=== PATIENT | female | born 1960 | race Caucasian/White ===

== ENCOUNTER 2017-06-11 11:52 | Emergency (ER) | payer OTHER ==
[2017-06-11 12:20] VITALS: BP 120/76
--- NOTE | 2017-06-11 13:24 | UC ---
Complaint Female HPI - HPI Summary HPI Summary: MILD BILATERAL LOW BACK AND FLANK PAIN, FREQUENCY URGENCY AND MALODOROUS URINE SINCE LAST NIGHT. NO FEVER. NO ABDOMINAL PAIN. NO BLOODIN INURINE. - History Of Current Complaint Chief Complaint: UCGU Stated Complaint: UTI Time Seen by Provider: 06/11/17 12:17 Hx Obtained From: Patient Onset/Duration: Gradual Onset, Lasting Hours Timing: Intermittent Severity Initially: Mild Severity Currently: Mild Pain Intensity: 0 Pain Scale Used: 0-10 Numeric Character: Dull Aggravating Factor(s): Urination Associated Signs And Symptoms: Positive: Back Pain. Negative: Fever, Vaginal Bleeding/Discharge, Nausea, Vomiting(# Of Episodes =), Genital Swelling, Genital Blisters - Risk Factors Ectopic Risk Factor: Negative Ovarian Torsion Risk Factor: Negative - Allergies/Home Medications Allergies/Adverse Reactions: Allergies Allergy/AdvReac Type Severity Reaction Status Date / Time Meperidine [From Demerol HCl] Allergy Unknown Unknown Verified 08/22/13 17:41 Reaction Details Codeine Allergy Unknown Verified 08/22/13 17:40 Reaction Details Sulfa Drugs Allergy Shortness Verified 08/22/13 17:40 of Breath Home Medications: Home Medications Albuterol inh POWDER (NF) [Proair Respiclick] 06/11/17 [History] Amlodipine Besylate [Norvasc 5 mg tab] 5 mg PO DAILY 06/11/17 [History Confirmed 06/11/17] Fluoxetine HCl [Prozac] 60 mg PO 06/11/17 [History] Fluticasone HFA 110 mcg(NF) [Flovent HFA 110 mcg(NF)] 1 puff INH BID 06/11/17 [ History Confirmed 06/11/17] Montelukast Sodium TAB* [Singulair TAB*] 10 mg PO DAILY 06/11/17 [History Confirmed 06/11/17] PMH/Surg Hx/FS Hx/Imm Hx Previously Healthy: Yes - Surgical History Surgical History: Yes Surgery Procedure, Year, and Place: stent placement, kidney stone removal, c- section x2 - Family History Known Family History: Positive: Renal Disease - KIDNEY STONES - Social History Occupation: Employed Full-time Lives: With Family Alcohol Use: Rare Substance Use Type: Prescribed Smoking Status (MU): Never Smoked Tobacco Review of Systems Constitutional: Negative Skin: Negative Eyes: Negative ENT: Negative Respiratory: Negative Cardiovascular: Negative Gastrointestinal: Negative Genitourinary: Dysuria, Frequency, Urgency Motor: Negative Neurovascular: Negative Musculoskeletal: Negative Neurological: Negative Psychological: Negative Is Patient Immunocompromised?: No All Other Systems Reviewed And Are Negative: Yes Physical Exam Triage Information Reviewed: Yes Appearance: Well-Appearing, No Pain Distress, Well-Nourished Vital Signs: Initial Vital Signs Temp 97.1 F 06/11/17 12:17 Pulse 85 06/11/17 12:17 Resp 18 06/11/17 12:17 BP 120/76 06/11/17 12:17 Pulse Ox 100 06/11/17 12:17 Vital Signs Reviewed: Yes Eye Exam: Normal ENT Exam: Normal ENT: Positive: Normal ENT inspection Dental Exam: Normal Neck exam: Normal Respiratory Exam: Normal Respiratory: Positive: Chest non-tender, Lungs clear, Normal breath sounds, No respiratory distress Cardiovascular Exam: Normal Cardiovascular: Positive: RRR, No Murmur, Pulses Normal Abdomen Description: Positive: Nontender, No Organomegaly, Soft, CVA Tenderness (L). Negative: CVA Tenderness (R), McBurney's Point Tenderness Musculoskeletal Exam: Normal Neurological Exam: Normal Psychological Exam: Normal Skin Exam: Normal Complaint Female Dx - Differential Dx/Diagnosis Differential Diagnosis/HQI/PQRI: Urinary Tract Infection Provider Diagnoses: URINARY TRACT INFECTION Discharge - Discharge Plan Condition: Stable Disposition: HOME Prescriptions: Ciprofloxacin TAB* [Cipro 500 MG TAB*] 500 mg PO BID #10 tab Phenazopyridine TAB* [Pyridium 100 mg TAB*] 100 mg PO TID PRN #15 tab PRN Reason: Pain Patient Education Materials: Urinary Tract Infection in Women (ED) Referrals: Juan Luis Jamison MD [Primary Care Provider] -
== END 2017-06-11 12:49 | disposition home or self-care (01) ==
LOC: UCEAST 11:52
DX: N39.0 Urinary tract infection, site not specified (principal); Z88.6 Allergy status to analgesic agent; Z88.2 Allergy status to sulfonamides
CPT/HCPCS: 81003; 87077; 87086; 87186; 99202; G0463

== ENCOUNTER 2017-10-26 20:40 | Inpatient (IN) | payer OTHER ==
[2017-10-26 22:03] LABS: ABS Basophils 0 10^3/ul (0-0.2); ABS Eosinophils 0 10^3/ul (0-0.6); ABS Lymphocytes 0.8 10^3/ul (1.0-4.8); ABS Monocytes 0.7 10^3/ul (0-0.8); ABS Neutrophils 10.7 10^3/ul (1.5-7.7); ABS Nucleated RBC 0 10^3/ul; Eosinophil % 0 % (0-6); Hematocrit 35 % (35-47); Hemoglobin 11.6 g/dl (12.0-16.0); Lymphocyte % 6.3 % (25-47); Mean Corpuscular HGB Conc 33 g/dl (31-36); Mean Corpuscular Hemoglobin 28 pg (27-31); Mean Corpuscular Volume 85 fL (80-97); Mean Platelet Volume 10 um3 (7.4-10.4); Nucleated Red Blood Cells % 0; Platelet Count 136 10^3/ul (150-450); Red Cell Distribution Width 14 % (10.5-15); White Blood Count 12.2 10^3/ul (3.5-10.8)
[2017-10-26 22:16] LABS: EGFR Non-African American 61.1 (>60)
[2017-10-26 22:17] LABS: Urine Appearance Clear; Urine Blood 1+ (Negative); Urine Color Amber; Urine Ketones Negative (Negative); Urine Protein Negative (Negative); Urine Specific Gravity 1.005 (1.010-1.030); Urine Urobilinogen Negative (Negative)
[2017-10-26] MEDS ORDERED: NS 0.9% 1000 ML* 2,000 ML IV ONE (22:25)
[2017-10-26] MEDS ORDERED: Piperacillin/Tazobac ADVAN(*) 3.375 GM in NS 0.9% 100 ML* 100 ML IVPB ONE (22:26)
[2017-10-26] MEDS ORDERED: Vancomycin(*) 1,000 MG in NS 0.9% 250 ML* 250 ML IVPB ONE (22:26)
[2017-10-26] MEDS ORDERED: Acetaminophen TAB* 325 MG PO ONE (22:26)
[2017-10-26] MEDS ORDERED: Ketorolac INJ* 30 MG/ML 1 ML VIAL IV PUSH ONE (22:27)
[2017-10-26] MEDS ORDERED: Piperacillin/Tazobac (*) 3.375 GM BAG ONE (22:31)
[2017-10-26] MEDS ORDERED: Ondansetron INJ* 2 MG/ML VIAL IV ONE (22:57)
--- NOTE | 2017-10-27 00:15 | ED ---
Slade Boykin Stephanie, scribed for Brook Herr MD on 10/26/17 at 2228 . HPI Febrile Illness - HPI Summary HPI Summary: The pt is a 57 y/o F presenting to the ED with c/o fever that began earlier today. Symptoms include [place] and feeling lethargic and weird. The pt states she went to [facility] at 10:30 today and was dx with UTI. The pt received ne dose of Cipro after her appointment at [facility]. She reports taking Vicodin at 21:30 today. - History of Current Complaint Chief Complaint: EDNauseaVomitDiarrh Time Seen by Provider: 10/26/17 22:10 Hx Obtained From: Patient Onset/Duration: Started Hours Ago - 9, Still Present Timing: Intermittent Current Severity: Moderate Pain Intensity: 6 Pain Scale Used: 0-10 Numeric Aggravating Factors: Nothing Alleviating Factors: Nothing Associated Signs and Symptoms: Headache, Other: - feeling lethargic and weird - Allergy/Home Medications Allergies/Adverse Reactions: Allergies Allergy/AdvReac Type Severity Reaction Status Date / Time codeine Allergy Unknown Verified 10/26/17 21:13 Reaction Details meperidine [From Demerol] Allergy Unknown Verified 10/26/17 21:13 Reaction Details Sulfa (Sulfonamide Allergy Shortness Verified 10/26/17 21:13 Antibiotics) of Breath PMH/Surg Hx/FS Hx/Imm Hx Cardiovascular History: Reports: Hx Hypertension Respiratory History: Reports: Hx Asthma History: Reports: Hx Kidney Infection, Hx Kidney Stones - Surgical History Surgery Procedure, Year, and Place: stent placement, kidney stone removal, c- section x2 Infectious Disease History: No Infectious Disease History: Denies: Traveled Outside the [place] in Last 30 Days - Family History Known Family History: Positive: Renal Disease - KIDNEY STONES - Social History Occupation: Unemployed Lives: Alone Alcohol Use: Rare Substance Use Type: Reports: Prescribed Smoking Status (MU): Former Smoker Review of Systems Positive: Fever Neurological: Other - feeling lethargic" All Other Systems Reviewed And Are Negative: Yes Physical Exam - Summary Physical Exam Summary: VITAL SIGNS: Reviewed. GENERAL: Patient is a well-developed and nourished FEMALE who is lying comfortable in the stretcher. Patient is not in any acute respiratory distress. HEAD AND FACE: No signs of trauma. No ecchymosis, hematomas or skull depressions. No sinus tenderness. EYES: PERRLA, EOMI x 2, No injected conjunctiva, no nystagmus. EARS: Hearing grossly intact. Ear canals and tympanic membranes are within normal limits. MOUTH: Oropharynx within normal limits. NECK: Supple, trachea is midline, no adenopathy, no JVD, no carotid bruit, no c- spine tenderness, neck with full ROM. CHEST: Symmetric, no tenderness at palpation LUNGS: Clear to auscultation bilaterally. No wheezing or crackles. CVS: Regular rate and rhythm, S1 and S2 present, no murmurs or gallops appreciated. ABDOMEN: Soft, L CVA tenderness. No signs of distention. No rebound no guarding , and no masses palpated. Bowel sounds are normal. EXTREMITIES: FROM in all major joints, no edema, no cyanosis or clubbing. NEURO: Alert and oriented x 3. No acute neurological deficits. Speech is normal and follows commands. SKIN: Dry and warm Triage Information Reviewed: Yes Vital Signs On Initial Exam: Initial Vitals Temp Pulse Resp BP Pulse Ox 99.0 F 105 16 102/85 99 10/26/17 21:07 10/26/17 21:07 10/26/17 21:07 10/26/17 21:07 10/26/17 21:07 Vital Signs Reviewed: Yes Diagnostics - Vital Signs Vital Signs Temp Pulse Resp BP Pulse Ox 10/26/17 22:18 100 98 10/26/17 22:15 111/59 10/26/17 21:07 99.0 F 105 16 102/85 99 - Laboratory Lab Results: Lab Results 10/26/17 10/26/17 10/26/17 Range/Units 21:45 21:45 21:45 WBC 12.2 H (3.5-10.8) 10^3/ul RBC 4.10 (4.0-5.4) 10^6/ul Hgb 11.6 L (12.0-16.0) g/dl Hct 35 (35-47) % MCV 85 (80-97) fL MCH 28 (27-31) pg MCHC 33 (31-36) g/dl RDW 14 (10.5-15) % Plt Count 136 L (150-450) 10^3/ul MPV 10 (7.4-10.4) um3 Neut % (Auto) 87.9 H (38-83) % Lymph % (Auto) 6.3 L (25-47) % [place] % (Auto) 5.5 (0-7) % Eos % (Auto) 0 (0-6) % Baso % (Auto) 0.3 (0-2) % Absolute Neuts (auto) 10.7 H (1.5-7.7) 10^3/ul Absolute Lymphs (auto) 0.8 L (1.0-4.8) 10^3/ul Absolute Monos (auto) 0.7 (0-0.8) 10^3/ul Absolute Eos (auto) 0 (0-0.6) 10^3/ul Absolute Basos (auto) 0 (0-0.2) 10^3/ul Absolute Nucleated RBC 0 10^3/ul Nucleated RBC % 0 Sodium 132 L (133-145) mmol/L Potassium 3.6 (3.5-5.0) mmol/L Chloride 101 (101-111) mmol/L Carbon Dioxide 20 L (22-32) mmol/L Anion Gap 11 (2-11) mmol/L BUN 14 (6-24) mg/dL Creatinine 0.95 (0.51-0.95) mg/dL Est GFR ( Amer) 78.5 (>60) Est GFR (Non-Af Amer) 61.1 (>60) BUN/Creatinine Ratio 14.7 (8-20) Glucose 135 H (70-100) mg/dL Lactic Acid 3.0 H* (0.5-2.0) mmol/L Calcium 9.4 (8.6-10.3) mg/dL Total Bilirubin 0.90 (0.2-1.0) mg/dL AST 26 (13-39) U/L ALT 25 (7-52) U/L Alkaline Phosphatase 85 (34-104) U/L C-Reactive Protein 159.83 H (< 5.00) mg/L Total Protein 7.1 (6.4-8.9) g/dL Albumin 4.1 (3.2-5.2) g/dL Globulin 3.0 (2-4) g/dL Albumin/Globulin Ratio 1.4 (1-3) Lipase < 10 L (11.0-82.0) U/L Urine Color Urine Appearance Urine pH (5-9) Ur Specific Mitchell (1.010-1.030) Urine Protein (Negative) Urine Ketones (Negative) Urine Blood (Negative) Urine Nitrate (Negative) Urine Bilirubin (Negative) Urine Urobilinogen (Negative) Ur Leukocyte Esterase (Negative) Urine WBC (Auto) (Absent) Urine RBC (Auto) (Absent) Urine Bacteria (Absent) Urine Glucose (Negative) 10/26/17 Range/Units 22:01 WBC (3.5-10.8) 10^3/ul RBC (4.0-5.4) 10^6/ul Hgb (12.0-16.0) g/dl Hct (35-47) % MCV (80-97) fL MCH (27-31) pg MCHC (31-36) g/dl RDW (10.5-15) % Plt Count (150-450) 10^3/ul MPV (7.4-10.4) um3 Neut % (Auto) (38-83) % Lymph % (Auto) (25-47) % [place] % (Auto) (0-7) % Eos % (Auto) (0-6) % Baso % (Auto) (0-2) % Absolute Neuts (auto) (1.5-7.7) 10^3/ul Absolute Lymphs (auto) (1.0-4.8) 10^3/ul Absolute Monos (auto) (0-0.8) 10^3/ul Absolute Eos (auto) (0-0.6) 10^3/ul Absolute Basos (auto) (0-0.2) 10^3/ul Absolute Nucleated RBC 10^3/ul Nucleated RBC % Sodium (133-145) mmol/L Potassium (3.5-5.0) mmol/L Chloride (101-111) mmol/L Carbon Dioxide (22-32) mmol/L Anion Gap (2-11) mmol/L BUN (6-24) mg/dL Creatinine (0.51-0.95) mg/dL Est GFR ( Amer) (>60) Est GFR (Non-Af Amer) (>60) BUN/Creatinine Ratio (8-20) Glucose (70-100) mg/dL Lactic Acid (0.5-2.0) mmol/L Calcium (8.6-10.3) mg/dL Total Bilirubin (0.2-1.0) mg/dL AST (13-39) U/L ALT (7-52) U/L Alkaline Phosphatase (34-104) U/L C-Reactive Protein (< 5.00) mg/L Total Protein (6.4-8.9) g/dL Albumin (3.2-5.2) g/dL Globulin (2-4) g/dL Albumin/Globulin Ratio (1-3) Lipase (11.0-82.0) U/L Urine Color Britney Urine Appearance Clear Urine pH 7.0 (5-9) Ur Specific Mitchell 1.005 L (1.010-1.030) Urine Protein Negative (Negative) Urine Ketones Negative (Negative) Urine Blood 1+ A (Negative) Urine Nitrate Positive A (Negative) Urine Bilirubin Negative (Negative) Urine Urobilinogen Negative (Negative) Ur Leukocyte Esterase 3+ A (Negative) Urine WBC (Auto) 2+(11-20/hpf) A (Absent) Urine RBC (Auto) Absent (Absent) Urine Bacteria 1+ A (Absent) Urine Glucose Negative (Negative) Result Diagrams: 10/26/17 21:45 10/26/17 21:45 Lab Statement: Any lab studies that have been ordered have been reviewed, and results considered in the medical decision making process. - CT Abdomen/Pelvis CT Interpretation: No Acute Changes CT Interpretation Completed By: Radiologist - There is no free air. The gallbladder is mildly distended. There are no obvious gallstones. There is fatty infiltration of the pancreas. There is no obvious acute pancreatitis. There were multiple bilateral nonobstructing renal calculi. There is mild left hydronephrosis and hrdroureter. There is no obstructing 7 mm calculus noted in the distal L ureter. There is associated L perinephric stranding. There is no AAA. There is no evidence of intestinal obstruction or appendicitis. There is no bladder calculi. Course/Dx - Course Course Of Treatment: At 23:42, ED physician spoke to Dr. Jerome, the urologist debone processing supervisor, who stated he will review the pt's CT scan and will call back to the ED physician post review CT. Dr. Jerome will take the pt to the OR. ED physician spoke to Dr. Bañuelos about admission of the pt. Dr. Bañuelos agrees to admit the pt. - Diagnoses Provider Diagnoses: Pyelonephritis, Obstructive uropathy - Provider Notifications Discussed Care Of Patient With: Kindra Bañuelos - Dr. Bañuelos recommends addmission to inpatient care. Time Discussed With Above Provider: 00:08 Discharge - Discharge Plan Condition: Stable Disposition: ADMITTED TO [facility] Referrals: Juan Luis Jamison MD [Primary Care Provider] - The documentation as recorded by the Slade melchor Stephanie accurately reflects the service I personally performed and the decisions made by Nemesio beckman Abdul, MD.
[2017-10-27] MEDS ORDERED: Morphine INJ* 4 MG/ML 1 ML CARPUJECT IV PRN (00:40)
[2017-10-27] MEDS ORDERED: Ondansetron INJ* 2 MG/ML VIAL IV PRN (00:40)
[2017-10-27] MEDS ORDERED: Acetaminophen TAB* 325 MG PO PRN (00:40)
[2017-10-27] MEDS ORDERED: Sodium Citrate/Citric Acid* 15 ML UDC PO ONE (00:42)
[2017-10-27] MEDS ORDERED: Buffered Lidocaine 0.9% SYRIN* 5 ML/SYR SYRINGE INTRADERM ONE (00:42)
[2017-10-27] MEDS ORDERED: Famotidine IV* 10 MG/ML 2 ML (20 mg) IV ONE (00:42)
[2017-10-27] MEDS ORDERED: HYDROcodone/ACETAMIN 5-325 MG* 1 TAB PO PRN ×2 (00:43→00:53)
[2017-10-27] MEDS ORDERED: Naloxone* 0.4 MG/ML 1 ML VIAL IV PRN (00:43)
[2017-10-27] MEDS ORDERED: PROCHLORPERAZINE INJ 5 MG/ML 2 ML VIAL IV PRN (00:43)
[2017-10-27] MEDS ORDERED: fentaNYL* 50 MCG/ML 2 ML VIAL (100 MCG VIAL) IV PRN (00:43)
[2017-10-27] MEDS ORDERED: oxyCODONE TAB* 5 MG TAB PO PRN (00:43)
[2017-10-27] MEDS ORDERED: NS 0.9% 1000 ML* 1,000 ML IV SCH (00:45)
[2017-10-27] MEDS ORDERED: Midazolam* 1 MG/ML 5 ML VIAL (5 MG) ONE (00:49)
[2017-10-27] MEDS ORDERED: fentaNYL* 50 MCG/ML 2 ML VIAL (100 MCG VIAL) ONE (00:49)
[2017-10-27] MEDS ORDERED: Sodium Citrate/Citric Acid* 15 ML UDC ONE (00:49)
[2017-10-27] MEDS ORDERED: Albuterol HFA INHALER* 8 gm MDI INH PRN (01:02)
[2017-10-27] MEDS ORDERED: Iohexol 180 (CONTRAST) 10 ML SDV IV ONE (01:05)
[2017-10-27] MEDS ORDERED: Metoclopramide IV* 5 MG/ML 2 ML VIAL ONE (01:15)
[2017-10-27] MEDS ORDERED: Famotidine IV* 10 MG/ML 2 ML (20 mg) ONE (01:15)
[2017-10-27] MEDS ORDERED: Metoclopramide IV* 5 MG/ML 2 ML VIAL IV ONE (01:25)
[2017-10-27] MEDS ORDERED: KETAMINE HCL* 50 MG/ML 10 ML VIAL ONE (01:40)
[2017-10-27] MEDS ORDERED: Phenylephrine INJ* 10 MG/ML 1 ML VIAL (10 MG) ONE (01:46)
[2017-10-27] MEDS: cefTRIAXone(*) 1 GM in NS 0.9% 50 ML* 50 ML IVPB SCH (06:03)
--- NOTE | 2017-10-27 06:40 | HP ---
CC: Dr. Jamison * HISTORY AND PHYSICAL: DATE OF ADMISSION: 10/27/17 PRIMARY CARE PROVIDER: Dr. Jamison. CHIEF COMPLAINT: Altered mental status. HISTORY OF PRESENT ILLNESS: Ms. May is a 57-year-old female who presents to the emergency room with complaints of altered mental status. According to the patient and her daughter, she developed right-sided flank pain last evening. She also had associated fever. She made an appointment to see a provider at her primary care provider's office today. At that time, she was diagnosed with a urinary tract infection, prescribed Cipro and Pyridium, and sent home. The patient states she took a dose of Cipro around noon and shortly thereafter vomited. She states after the vomiting episode, she then was incontinent of a very large amount of urine. The patient did admit to feeling nauseous prior to the episode of vomiting. As the day progressed, she was noted to be increasingly disoriented and sleepy. This evening, the patient had odd behaviors and therefore her daughter had her brought to the emergency room. At this point, the patient states that she is feeling okay. She continues to have right-sided flank pain. PAST MEDICAL HISTORY: 1. History of kidney stones in the past. 2. Hypertension. 3. Asthma. 4. Depression. PAST SURGICAL HISTORY: 1. x2. 2. Stent/stone removal in the past. MEDICATIONS: 1. Prozac 60 mg p.o. daily. 2. Pyridium 100 mg p.o. t.i.d. p.r.n. bladder spasms. 3. Cipro 500 mg p.o. b.i.d. 4. Singulair 10 mg p.o. daily. 5. [place] 7.5/325 one tab p.o. q.4 hours p.r.n. pain. 6. Amlodipine 5 mg p.o. daily. ALLERGIES: CODEINE, DEMEROL, SULFA. FAMILY HISTORY: Mom is living; she is 75; she has hypertension, diabetes, and Alzheimer's. Dad at the age of 55 of lung cancer. SOCIAL HISTORY: The patient is a nonsmoker. She drinks alcohol rarely. She previously worked at [employer]. She is . She has 3 children. Her daughter, Richa is her healthcare proxy. REVIEW OF SYSTEMS: A complete 11-system review of systems is obtained. Pertinent positives and negatives are as per HPI and in addition, the patient does admit to poor appetite on the day prior to admission as well as hematuria, but no significant dysuria. Otherwise, review of systems is negative. PHYSICAL EXAMINATION GENERAL: The patient is a well-developed, middle-aged female, sitting up in the stretcher, in no acute distress. VITAL SIGNS: Blood pressure 102/62, pulse 101, respirations 16, temp 99.0, O2 sat 98% on room air. HEENT: Pupils are equal and round. Extraocular muscles are intact. Oropharynx is clear. Oral mucosa is moist. There is no submandibular, cervical , or supraclavicular adenopathy. Thyroid is not enlarged. No thyroid nodules are noted. PULMONARY: Lungs are clear to auscultation with decreased breath sounds at the bases bilaterally. CARDIAC: Normal S1, S2. Heart rate is mildly tachycardic. I do not appreciate any murmurs. There is no lower extremity edema. ABDOMEN: Bowel sounds present. Abdomen is soft, nontender, and nondistended. The patient does have mild right CVA tenderness. MUSCULOSKELETAL: There is no cyanosis or clubbing of the digits. There is full active range of motion of all 4 extremities. NEUROLOGIC: Cranial nerves II through XII are grossly intact. Sensation is intact to light touch throughout. Strength is 5/5 and symmetric in both upper and lower extremities bilaterally. SKIN: Warm and dry. There are no rashes. PSYCH: The patient is alert. She is oriented x3. Affect appears appropriate. DIAGNOSTIC STUDIES/LAB DATA: WBC 12.2, hemoglobin 11.6, hematocrit 35, platelets 136. Sodium 132, potassium 3.6, chloride 101, CO2 20, BUN 14, creatinine 0.95, glucose 135, lactic acid 3.0, calcium 9.4. Bilirubin 0.9, AST 26, ALT 25, alk phos 85. CRP 159.83. Albumin 4.1, lipase less than 10. Urinalysis reveals a specific gravity of 1.005, positive nitrites, 3+ leukocyte esterase, 2+ wbc's, and 1+ bacteria. Abdomen and pelvis CT, there are multiple bilateral nonobstructing renal calculi. There is mild left hydronephrosis and hydroureter. There is a 7 mm calculus noted in the distal left ureter. There is associated left perinephric stranding. ASSESSMENT AND PLAN: Ms. May is a 57-year-old female with past history of kidney stones, hypertension, depression and asthma, who presents to the emergency room with altered mental status after being seen at her primary care provider's office for flank pain and fever and being diagnosed with the urinary tract infection. 1. Likely left pyelonephritis with obstructing left ureteral stone. The plan is for the patient to go urgently to the operating room. She has received Zosyn and vancomycin in the emergency room. We will transition her to ceftriaxone 1 g IV daily, beginning at 0500 this morning. Cultures will be obtained in the operating room. The patient is septic secondary to the likely pyelonephritis. She meets sepsis criteria with her tachycardia and leukocytosis. She does not meet for severe sepsis criteria. She has received 2 L of normal saline bolus in the emergency room and will then have continued maintenance fluids. The patient will have morphine and [place] available for pain. 2. Hypertension. The patient's blood pressure currently is low normal. This will need to be monitored closely. I will continue her amlodipine; however, if she goes hypotensive, this can be held. 3. Depression. We will continue Prozac. 4. Asthma. There are no signs of exacerbation at this point. She will continue on her Singulair. I will add p.r.n. albuterol as needed for shortness of breath or wheezing. 5. DVT prophylaxis. According to the Adult Thrombosis Prophylaxis Risk Factor Assessment Guide, the patient has a total risk factor score of 2 making her moderate risk. SCDs will be utilized as DVT prophylaxis. Chemical prophylaxis will not be utilized as the patient is going urgently to the operating room. 6. Code status is full. TIME SPENT: Sixty-five minutes was spent admitting this patient. [id number]/[facility] #: [id number] TRINA
[2017-10-27 07:10] LABS: Hematocrit 27 % (35-47); Hemoglobin 9.3 g/dl (12.0-16.0); Mean Corpuscular HGB Conc 34 g/dl (31-36); Mean Corpuscular Hemoglobin 29 pg (27-31); Mean Corpuscular Volume 86 fL (80-97); Red Blood Count 3.18 10^6/ul (4.0-5.4); Red Cell Distribution Width 14 % (10.5-15)
[2017-10-27 07:37] LABS: Mean Platelet Volume 10 um3 (7.4-10.4); Platelet Count 95 10^3/ul (150-450)
--- NOTE | 2017-10-27 07:55 | RAD ---
INDICATION: Abdominal pain. COMPARISON: Comparison is made with a prior CT of the abdomen and pelvis from December 12, 2003. TECHNIQUE: A CT scan of the abdomen and pelvis was performed without intravenous or oral contrast. Contiguous axial sections were obtained from the lung bases through the symphysis pubis. Images were reconstructed in the coronal and sagittal planes. FINDINGS: The lung bases are clear. No pleural effusion is present. The liver is mildly enlarged and decreased in attenuation consistent with fatty infiltration. No focal abnormality is seen on this noncontrast study. The gallbladder is distended. No calcified gallstones are seen. The spleen is normal in size. There is fatty infiltration of the pancreas. The adrenal glands appear normal in size. There are numerous bilateral renal calculi measuring between 2 and 5 mm in size. In addition there is enlargement of the left kidney with perinephric stranding. There is a 8 mm calculus present in the distal left ureter approximately 3 cm proximal to the ureterovesical junction causing moderate hydronephrosis. The aorta is normal in caliber with moderate calcific plaque present. There are mildly prominent retroperitoneal lymph nodes in the upper abdomen which appear unchanged from the prior exam and therefore consistent with a benign process. The stomach, small and large bowel appear nondistended. The appendix is within normal limits. There is a moderate to large amount retained stool. There is no evidence for diverticulitis or colitis. The uterus is anteverted and normal in size. No free intraperitoneal air or fluid is seen. There is grade 1 retrolisthesis at the L5-S1 level. No fracture is seen. IMPRESSION: 1. THERE IS A 8 MM CALCULUS IN THE DISTAL LEFT URETER CAUSING MODERATE HYDRONEPHROSIS. THERE ARE MULTIPLE ADDITIONAL NONOBSTRUCTING BILATERAL RENAL CALCULI. 2. MILD HEPATOMEGALY AND HEPATIC STEATOSIS. 3. FATTY INFILTRATION OF THE PANCREAS. 4. MODERATE TO LARGE AMOUNT RETAINED STOOL.
[2017-10-27] MEDS: FLUoxetine CAP* 20 MG PO SCH (09:14)
[2017-10-27] MEDS: oxyCODONE/Acetamin 5/325 MG* TAB PO PRN ×3 (09:14→20:29)
[2017-10-27] MEDS: Montelukast Sodium TAB* 10 MG PO SCH (09:14)
[2017-10-27] MEDS: Potassium Chlor TAB* 20 MEQ TAB.ER PO SCH ×2 (09:27→20:30)
[2017-10-27] MEDS: amLODIPine TAB* 5 MG PO SCH (10:24)
--- NOTE | 2017-10-27 11:40 | PN ---
Subjective Date of Service: 10/27/17 Interval History: Patient states that she feels much better. Patient has continued back pain and CVA tenderness. Patient had her bajwa catheter removed soon before interview at 0800 and had not yet urinated. Patient had been making adequate urine. Patient denies F/C, N/V, abdominal pain, diarrhea, Dizziness, CP, SOB, palpitations, or other pain. Patient states that she was told previously that her stones were calcium oxalate. Patient states she drinks lots of water but denies any other prophylactic interventions for her kidney stones. Family History: Findings - Patient's Daughter had kidney stones in . Social History: Unchanged from Admission Past Medical History: Unchanged from Admission Objective Active Medications: Acetaminophen (Tylenol Tab*) 650 mg PO Q4H PRN PRN Reason: pain/fever Albuterol (Ventolin Hfa Inhaler*) 2 puff INH Q4H PRN PRN Reason: SOB/WHEEZING Amlodipine Besylate (Norvasc Tab*) 5 mg PO DAILY [facility] Last Admin: 10/27/17 10:24 Dose: Not Given Fluoxetine HCl (Prozac Cap*) 60 mg PO DAILY [facility] Last Admin: 10/27/17 09:14 Dose: 60 mg Ceftriaxone Sodium 1 gm/ (Sodium Chloride) 50 mls @ 200 mls/hr IVPB Q24H [facility] Last Admin: 10/27/17 06:03 Dose: 200 mls/hr Lactated Ringer's (Lactated Ringers 1000 Ml Bag*) 1,000 mls @ 75 mls/hr IV PER RATE [facility] Montelukast Sodium (Singulair Tab*) 10 mg PO DAILY [facility] Last Admin: 10/27/17 09:14 Dose: 10 mg Morphine Sulfate (Morphine Inj (Syringe)*) 4 mg IV Q4H PRN PRN Reason: PAIN Ondansetron HCl (Zofran Inj*) 4 mg IV Q6H PRN PRN Reason: NAUSEA Oxycodone/Acetaminophen (Percocet 5/325 Tab*) 2 tab PO Q6H PRN PRN Reason: PAIN Last Admin: 10/27/17 09:14 Dose: 2 tab Potassium Chloride (Klor Con Er Tab*) 20 meq PO BID [facility] Last Admin: 10/27/17 09:27 Dose: 20 meq Vital Signs - 8 hr 10/27/17 10/27/17 10/27/17 04:22 04:30 04:45 Temperature Pulse Rate 86 80 86 Respiratory 26 15 21 Rate Blood Pressure 92/71 100/69 97/74 (mmHg) O2 Sat by Pulse 94 98 95 Oximetry 10/27/17 10/27/17 10/27/17 04:50 05:00 05:15 Temperature 98.7 F Pulse Rate 84 82 83 Respiratory 18 18 16 Rate Blood Pressure 97/64 100/62 102/68 (mmHg) O2 Sat by Pulse 96 99 98 Oximetry 10/27/17 10/27/17 10/27/17 05:19 05:30 05:35 Temperature Pulse Rate 82 Respiratory 19 16 19 Rate Blood Pressure 102/64 (mmHg) O2 Sat by Pulse 98 98 Oximetry 10/27/17 10/27/17 10/27/17 05:45 06:00 06:01 Temperature Pulse Rate Respiratory 17 16 17 Rate Blood Pressure 100/59 92/71 (mmHg) O2 Sat by Pulse 97 97 Oximetry 10/27/17 10/27/17 10/27/17 06:15 06:18 06:30 Temperature Pulse Rate 76 Respiratory 15 16 16 Rate Blood Pressure 103/61 101/70 (mmHg) O2 Sat by Pulse 97 97 97 Oximetry 10/27/17 10/27/17 10/27/17 06:45 06:59 07:00 Temperature Pulse Rate 77 78 Respiratory 19 19 17 Rate Blood Pressure 94/58 114/65 (mmHg) O2 Sat by Pulse 98 97 Oximetry 10/27/17 10/27/17 10/27/17 07:01 07:10 07:16 Temperature Pulse Rate 78 77 84 Respiratory 20 16 18 Rate Blood Pressure 91/79 (mmHg) O2 Sat by Pulse 98 98 97 Oximetry 10/27/17 10/27/17 10/27/17 07:30 08:00 08:01 Temperature Pulse Rate 84 79 82 Respiratory 23 21 16 Rate Blood Pressure 110/66 117/73 (mmHg) O2 Sat by Pulse 95 92 96 Oximetry 10/27/17 10/27/17 10/27/17 08:10 08:14 08:43 Temperature 99.6 F Pulse Rate 79 84 Respiratory 21 16 Rate Blood Pressure (mmHg) O2 Sat by Pulse 96 96 Oximetry 10/27/17 10/27/17 10/27/17 09:00 09:14 09:47 Temperature Pulse Rate 83 84 Respiratory 16 20 19 Rate Blood Pressure 119/77 (mmHg) O2 Sat by Pulse 96 97 Oximetry 10/27/17 10/27/17 10/27/17 09:55 10:33 10:54 Temperature 98.8 F Pulse Rate 85 95 Respiratory 20 20 Rate Blood Pressure 114/75 138/85 (mmHg) O2 Sat by Pulse 95 99 Oximetry Oxygen Devices in Use Now: None Appearance: Patient is a 57yo female who appears stated age and is sitting in the bed in NAD. Eyes: No Scleral Icterus, PERRLA Ears/Nose/Mouth/Throat: NL Teeth, Lips, Gums, Clear Oropharnyx, Mucous Membranes Moist Neck: NL Appearance and Movements; NL JVP, Trachea Midline Respiratory: Symmetrical Chest Expansion and Respiratory Effort, Clear to Auscultation Cardiovascular: NL Sounds; No Murmurs; No JVD, RRR, No Edema Abdominal: NL Sounds; No Tenderness; No Distention, No Hepatosplenomegaly Lymphatic: No Cervical Adenopathy Extremities: No Edema, No Clubbing, Cyanosis Skin: No Rash or Ulcers, No Nodules or Sclerosis Neurological: Alert and Oriented x 3, NL Sensation, NL Muscle Strength and Tone , - - CN II-XII Result Diagrams: 10/27/17 06:15 10/27/17 06:15 Additional Lab and Data: Lab Results Microbiology and Other Data: Microbiology 10/27/17 05:10 Nasal Screen MRSA (PCR)(JOSÉ) - Final Nasal Mrsa Not Detected Assess/Plan/Problems-Billing Assessment: Patient is a 57yo female with a PMH for Nephrolithiasis, HTN, asthma, and depression who was admitted with obstructing nephrolithiasis and pyelonephritis who was hypotensive postoperatively but is currently greatly improved. - Patient Problems (1) Nephrolithiasis Current Visit: Yes Status: Acute Code(s): N20.0 - CALCULUS OF KIDNEY SNOMED Code(s): 83922673 Comment: Appreciate urology consult. Patient was obstructed and stented overnight. Symptomatically much improved. This is patient's third episode of symptomatic nephrolithiasis. Patient states that she was previously told that her stones were calcium oxalate. Patient drinks lots of water. Unable to give thiazide or thiazide-like diuretic due to previous hypersensitivity reactions. (2) HTN (hypertension) Current Visit: Yes Status: Acute Code(s): I10 - ESSENTIAL (PRIMARY) HYPERTENSION SNOMED Code(s): 76908939 Comment: Normotensive, was hypotensive, continue amlodipine. (3) Pyelonephritis Current Visit: Yes Status: Acute Code(s): N12 - TUBULO-INTERSTITIAL NEPHRITIS, NOT SPCF ACUTE OR CHRONIC SNOMED Code(s): 29802331 Comment: No pus in kidney after stent placement. Continue Ceftriaxone. Contacted PCP about culture of urine from yesterday. Patient received 1 dose of ciprofloxacin yesterday. (4) Asthma Current Visit: Yes Status: Acute Code(s): J45.909 - UNSPECIFIED ASTHMA, UNCOMPLICATED SNOMED Code(s): 772447737 Comment: Asymptomatic, Ventolin PRN. (5) Anxiety Current Visit: Yes Status: Acute Code(s): F41.9 - ANXIETY DISORDER, UNSPECIFIED SNOMED Code(s): 49265884 Comment: Continue Prozac. Euthymic. (6) DVT prophylaxis Current Visit: Yes Status: Acute Code(s): YJS2252 - SNOMED Code(s): 155936676 Comment: SCDs (7) Full code status Current Visit: Yes Status: Acute Code(s): Z78.9 - OTHER SPECIFIED HEALTH STATUS SNOMED Code(s): 543351360 Status and Disposition: Admitted inpatient. Transferred to [facility].
--- NOTE | 2017-10-27 17:25 | OP ---
CC: Dr. Jamison * DATE OF OPERATION: 10/27/17 - ROOM #340 DATE OF : 64 SURGEON: Chalo Jerome MD ANESTHESIOLOGIST: Dr. Vel Stanley. ANESTHESIA: IV sedation with MAC. PRE-OP DIAGNOSES: 1. Bilateral renal calculi. 2. Distal left ureteral calculus (8 mm). 3. Pyelonephritis and urosepsis. POST-OP DIAGNOSES: 1. Bilateral renal calculi. 2. Distal left ureteral calculus (8 mm). 3. Pyelonephritis and urosepsis. OPERATIVE PROCEDURE: Cystoscopy, left retrograde pyelography, and placement of left ureteral stent (6-Slovenian). INDICATION FOR PROCEDURE: Mrs. May is a 57-year-old white female who had past history of renal calculus disease. Yesterday, she stated having left flank pain associated with nausea and vomiting and symptoms of cystitis. She had a fever of about 101.5. She was evaluated at [facility], and was diagnosed as having urinary tract infection and placed on Cipro. Her symptoms gotten worse and she started feeling lightheaded, pale, and somewhat disoriented. She presented to the emergency room late last night. Her blood pressure was [address] of the abdomen and pelvis showed bilateral nonobstructing renal calculi. There was mild left hydronephrosis and fullness of the left ureter and a 7 to 8-mm calculus in the distal left ureter. No calculi were noted in the right ureter. Her lactic acid was elevated at 3. With the diagnosis of impending urosepsis and left ureteral calculus and left pyelonephritis, the patient is being taken to the operating room on an urgent basis for a stent placement. PATHOLOGY AT FLUOROSCOPY: The calculi could not be well visualized in the kidneys or in the ureter. At cystoscopy, the bladder mucosa did look normal. There were no changes of cystitis seen. No calculi or diverticula were noted. The ureteral orifices looked normal. There was some resistance to the introduction of the guidewire in the distal ureter. The urine from the left collecting system did not look cloudy. Following drainage of the left kidney, retrograde pyelography showed no hydronephrosis. DESCRIPTION OF PROCEDURE: Under intravenous sedation with anesthesia monitoring , the patient was placed in the lithotomy position and was prepped and draped for a cystoscopy. Cystoscopy was then performed. The bladder was inspected and the above findings were noted. A flexible-tip guidewire was then introduced into the left orifice and was successfully passed into the area of the renal pelvis. An open-ended catheter was then fed on top of the guidewire and positioned in the area of the renal pelvis. There was a moderate hydronephrotic drip noted. The urine was clear and not cloudy. After the hydronephrotic drip slowed down, 3 cc of contrast were injected delineating a nondilated collecting system. A 6-Slovenian stent was then placed with the proximal end in the lower pole calyx and the distal end coiling inside the bladder. There was no residual contrast in the kidney. Through the procedure, the patient was running a systolic blood pressure about 85 to 90. Otherwise, she was tolerating the procedure well. The patient was then taken to the recovery room in a stable condition. [id number]/[facility] #: [id number] TRINA
[2017-10-27] MEDS ORDERED: Famotidine TAB* 20 MG PO PRN (21:59)
[2017-10-28] MEDS: oxyCODONE/Acetamin 5/325 MG* TAB PO PRN ×2 (03:42→09:49)
[2017-10-28 05:27] LABS: EGFR Non-African American 88.3 (>60)
[2017-10-28] MEDS: cefTRIAXone(*) 1 GM in NS 0.9% 50 ML* 50 ML IVPB SCH (05:29)
[2017-10-28 05:30] LABS: ABS Basophils 0 10^3/ul (0-0.2); ABS Eosinophils 0.1 10^3/ul (0-0.6); ABS Lymphocytes 0.8 10^3/ul (1.0-4.8); ABS Monocytes 0.4 10^3/ul (0-0.8); ABS Neutrophils 4.7 10^3/ul (1.5-7.7); ABS Nucleated RBC 0 10^3/ul; Eosinophil % 1.5 % (0-6); Hematocrit 28 % (35-47); Hemoglobin 9.4 g/dl (12.0-16.0); Lymphocyte % 13.4 % (25-47); Mean Corpuscular HGB Conc 33 g/dl (31-36); Mean Corpuscular Hemoglobin 29 pg (27-31); Mean Corpuscular Volume 86 fL (80-97); Mean Platelet Volume 10 um3 (7.4-10.4); Nucleated Red Blood Cells % 0; Platelet Count 88 10^3/ul (150-450); Red Blood Count 3.27 10^6/ul (4.0-5.4); Red Cell Distribution Width 15 % (10.5-15)
[2017-10-28] MEDS ORDERED: Magnesium Sulfate 2 GM IV* 2 GM/50 ML BAG IVPB ONE (06:48)
[2017-10-28] MEDS ORDERED: Phenazopyridine TAB* 100 MG PO PRN (08:43)
[2017-10-28] MEDS ORDERED: Butalb/Acetamin/Caff TAB* 1 TAB PO ONE (08:46)
[2017-10-28] MEDS: amLODIPine TAB* 5 MG PO SCH (11:29)
[2017-10-28] MEDS: Montelukast Sodium TAB* 10 MG PO SCH (11:29)
[2017-10-28] MEDS: Potassium Chlor TAB* 20 MEQ TAB.ER PO SCH (11:29)
[2017-10-28] MEDS: FLUoxetine CAP* 20 MG PO SCH (11:29)
--- NOTE | 2017-10-28 12:54 | RAD ---
HISTORY: Post stent insertion COMPARISONS: CT dated October 26, 2017 VIEWS: Frontal views of the abdomen. FINDINGS: BOWEL: There is a nonobstructive bowel gas pattern. There is a large amount of stool within the colon. CALCULI: A left ureteral stent is noted. There are calcifications of the pelvis, including a calculus of the left hemipelvis that appears to correspond to the ureteral calculus. Bilateral renal calculi are noted. BONES AND SOFT TISSUES: Degenerative changes noted of the spine. OTHER FINDINGS: The lung bases are clear. There is no subphrenic gas. IMPRESSION: BILATERAL NEPHROLITHIASIS WITH A LEFT URETERAL STENT.
[2017-10-28 14:24] VITALS: BP 129/72
--- NOTE | 2017-10-29 01:01 | DS ---
CC: Dr. Jamison; Dr. Yan Cunha * DISCHARGE SUMMARY: DATE OF ADMISSION: 10/27/17 DATE OF DISCHARGE: 10/28/17 PRIMARY CARE PROVIDER: Dr. Jamison. MY ATTENDING WHILE IN THE HOSPITAL: Dr. Dexter Covarrubias.* (DICTATED BY MISTI STEPHENS) UROLOGIST: Dr. Yan Cunha. PRIMARY DISCHARGE DIAGNOSES: 1. Nephrolithiasis. 2. Pyelonephritis. SECONDARY DISCHARGE DIAGNOSES: 1. Hypertension. 2. Asthma. 3. Depression. 4. Chronic pain. STUDIES DONE WHILE IN THE HOSPITAL: Abdomen and pelvis CT from 10/26/17 read as there is an 8-mm calculus in the distal left ureter causing moderate hydronephrosis. There are multiple additional nonobstructing bilateral renal calculi, mild hepatomegaly, hepatic steatosis, fatty infiltration of pancreas, [id number] amount of retained stool. Abdomen x-ray from 10/28/17 read as bilateral nephrolithiasis with a left ureteral stent. MEDICATIONS: At discharge: 1. Singulair 10 mg p.o. daily. 2. Amlodipine 5 mg p.o. daily. 3. Fluoxetine 60 mg p.o. daily. 4. [place] 7.5/325 one tab p.o. q.4 hours as needed. 5. Tylenol 650 mg p.o. q.4 hours as needed. 6. Cefpodoxime 200 mg p.o. q.12 hours x24. 7. Famotidine 20 mg p.o. b.i.d. as needed. 8. Pyridium 200 mg p.o. q.6 hours as needed. 9. Ferrous sulfate 325 mg p.o. every other day. 10. Zofran ODT 4 mg p.o. q.6 hours as needed. New medications at discharge: 1. Tylenol. 2. Cefpodoxime. 3. Famotidine. 4. Pyridium. 5. Ferrous sulfate. 6. Zofran. Medications discontinued at discharge: 1. Ciprofloxacin. 2. Pyridium. HOSPITAL COURSE: This is a brief summary of the patient's presentation. For more details, please see the history and physical from Dr. Kindra Bañuelos on 04/08. In brief, the patient is a 57-year-old female, who presents to the emergency room with altered mental status. She had previously been seen by her primary care provider for symptoms including flank pain and fever. She was diagnosed with urinary tract infection and started on Cipro, she took 1 dose of Cipro and then vomited shortly thereafter. She became disoriented and sleepy later in the day and started to have odd behavior. The patient was brought to the emergency room and found to have kidney stones. CT as above. The patient had hydronephrosis. White blood cell count of 12.2. Sodium 132, lactic acid of 3.0. CRP of 159. The patient was taken to the operating room with Dr. Chalo Jerome and had a left-sided ureteral stent placed. The patient had no pus behind the stone. The patient after the surgery had decreased blood pressure persistently. The patient was started on Martinez-Synephrine, transferred to the ICU. The patient's blood pressure increased significantly with fluids and Martinez- Synephrine was able to be turned off quickly. The patient felt much better, had no subjective fevers. Her blood pressure increased. Lactic acid decreased and she was able to be transferred out of the ICU on 10/27/17. The patient continued to have back pain and burning with urination. The patient was found to have positive blood cultures for E. coli. The patient's urine culture from her primary care provider's office also grew pansensitive E. coli. The patient was making adequate amounts of urine. The patient states that she was previously told her stones were calcium oxalate, but has never been on preventive therapy for this. The patient was continued on ceftriaxone while in the hospital. The patient had no other complaints. The patient continued to improve from 10/27/17 to 10/28/17. The patient's white count decreased to 6.0. The patient had anemia at 11.6 when she came to the emergency department and decreased to 9.4. The patient's platelets also decreased to 88,000 while in the hospital. An iron panel was drawn and showed iron less than 15 with a percent saturation of 5 and a ferritin of 46.9 despite bacteremia. The patient had a B12 of 440, a folate of 17.48, and a TSH of 1.14. The patient is amenable to be starting on iron supplement. PHYSICAL EXAMINATION AT DISCHARGE: General: The patient is a 57-year-old female, who appears stated age and sitting comfortably in bed, in no acute distress. Vital signs at time of discharge: Temperature 97.7, pulse rate 85, respiratory rate 16, oxygen saturation 92% on room air, blood pressure 129/72. HEENT: Head normocephalic, atraumatic. Sclerae anicteric. No conjunctival injection. Nasal mucosa moist. Oral mucosa moist. No pharyngeal erythema, discharge, or exudate. Neck: Supple, nontender. No lymphadenopathy. No carotid bruit auscultated. No JVD. Cardiac: Regular rate and rhythm. No clicks, murmurs, gallops, or rubs. Pulses 2+ in the bilateral dorsalis pedis and posterior tibialis and radial areas. No bilateral lower extremity edema noted or calf tenderness. Respiratory: Clear to auscultation bilaterally. No wheezes, rales, or rhonchi. Good air exchange bilaterally. Abdomen: Soft, nontender, nondistended. Bowel sounds present, normoactive in all 4 quadrants. No hepatosplenomegaly. No abdominal bruits auscultated. Genitourinary: No suprapubic or CVA tenderness. Skin: Clean, dry, intact. No rash. Neuro: Cranial nerves II through XII intact. No focal deficits. Normal gait. Alert and oriented x3. Psychiatric: Pleasant and cooperative. LABORATORY DATA: From day of discharge: White blood count 6.0, hemoglobin 9.4 , hematocrit 28, platelet count 88. Sodium 138, potassium 3.9, chloride 113, carbon dioxide 20, anion gap 5, BUN 13, creatinine 0.69, glucose 142, lactic acid 0.7, calcium 8.7, magnesium 1.8, iron less than 15, TIBC 311, percent saturation 5, transferrin 222, ferritin 46.9, B12 440, folate 17.48. TSH 1.14. Other laboratory data of note from hospitalization, admission white blood cell count 12.2, lactic acid 3.0. Urinalysis showed positive nitrite and 3+ leukocyte esterase. DISCHARGE PLAN: The patient will be discharged to home on a 14-day course of ceftriaxone and cefpodoxime. The patient should have her stent removed with Urology per plan. The patient should call the urologist's office to set up appointment approximately 10 days after discharge. The patient should engage in activity as tolerated. This has been discussed with Dr. Cunha that further urine studies for oxalate and citrate are warranted before appropriate preventative therapy is instituted. This will be discussed at followup appointment. The patient should return to the hospital for alarming symptoms such as fevers, altered mental status, chest pain, shortness of breath. The patient should have a heart- healthy diet without caffeine. The patient should follow up with her primary care provider within 1 week and have a repeat CBC drawn due to anemia and decreased platelet count. TIME SPENT: Approximately an hour was spent on this discharge, 30 of which was spent [id number] with the patient obtaining history and physical and discussing treatment plan. MISTI STEPHENS [id number]/[facility] #: [id number] [place]
== END 2017-10-28 14:20 | disposition home or self-care (01) | DRG 872 ==
LOC: ED 20:40 → OR 10-27 01:16 → ICU 10-27 04:15 → SSU 10-27 10:32
PROVIDERS: ADMIT Hospitalist; ATTEND Internal Medicine
PROC: BT1FZZZ Fluoroscopy of Left Kidney, Ureter and Bladder (ICD-10-PCS; 2017-10-27)
PROC: 0T778DZ Dilation of Left Ureter with Intraluminal Device, Via Natural or Artificial Opening Endoscopic (ICD-10-PCS; principal; 2017-10-27 01:14)
DX: A41.9 Sepsis, unspecified organism (principal); N13.6 Pyonephrosis; F32.9 Major depressive disorder, single episode, unspecified; I10 Essential (primary) hypertension; F41.9 Anxiety disorder, unspecified; M79.7 Fibromyalgia; J45.909 Unspecified asthma, uncomplicated; G89.29 Other chronic pain; K76.0 Fatty (change of) liver, not elsewhere classified; K59.00 Constipation, unspecified; K21.9 Gastro-esophageal reflux disease without esophagitis; F11.90 Opioid use, unspecified, uncomplicated; D64.9 Anemia, unspecified; I95.9 Hypotension, unspecified; Z88.5 Allergy status to narcotic agent; Z87.442 Personal history of urinary calculi; Z88.8 Allergy status to other drugs, medicaments and biological substances; Z88.2 Allergy status to sulfonamides; Z82.49 Family history of ischemic heart disease and other diseases of the circulatory system; Z83.3 Family history of diabetes mellitus; Z81.8 Family history of other mental and behavioral disorders; Z80.1 Family history of malignant neoplasm of trachea, bronchus and lung; Z84.1 Family history of disorders of kidney and ureter; Z87.891 Personal history of nicotine dependence
CPT/HCPCS: 36415; 74018; 74176; 80048; 80053; 81003; 81015; 82607; 82728; 82746; 83540; 83550; 83605; 83690; 83735; 84443; 84466; 85025; 85027; 86140; 87040; 87077; 87086; 87186; 87205; 87641; 99285; A9270-GY; C1876; J0696; J1885; J2250; J2405; J2543; J2765; J3010; J3370; J3475

== ENCOUNTER 2017-10-28 18:49 | Inpatient (IN) | payer OTHER ==
[2017-10-28] MEDS ORDERED: NS 0.9% 1000 ML* 1,000 ML IV ONE (19:10)
[2017-10-28] MEDS ORDERED: Acetaminophen TAB* 325 MG PO ONE (19:11)
[2017-10-28 19:30] LABS: ABS Basophils 0 10^3/ul (0-0.2); ABS Eosinophils 0 10^3/ul (0-0.6); ABS Lymphocytes 0.6 10^3/ul (1.0-4.8); ABS Monocytes 0.4 10^3/ul (0-0.8); ABS Neutrophils 4.2 10^3/ul (1.5-7.7); ABS Nucleated RBC 0 10^3/ul; Eosinophil % 0.8 % (0-6); Hematocrit 31 % (35-47); Hemoglobin 10.2 g/dl (12.0-16.0); Lymphocyte % 12.3 % (25-47); Mean Corpuscular HGB Conc 33 g/dl (31-36); Mean Corpuscular Hemoglobin 28 pg (27-31); Mean Corpuscular Volume 85 fL (80-97); Mean Platelet Volume 9 um3 (7.4-10.4); Nucleated Red Blood Cells % 0; Platelet Count 109 10^3/ul (150-450); Red Blood Count 3.62 10^6/ul (4.0-5.4); Red Cell Distribution Width 15 % (10.5-15); White Blood Count 5.2 10^3/ul (3.5-10.8)
[2017-10-28] MEDS ORDERED: Piperacillin/Tazobac ADVAN(*) 3.375 GM in NS 0.9% 100 ML* 100 ML IVPB ONE (19:30)
--- NOTE | 2017-10-28 20:33 | HP ---
H&P (Free Text) History and Physical: Note: This is an interval H&P, the original is copied at the end. PCP: Kiran Jamison MD Date/Time: 10/28/2017 1950 CC: fever, malaise HPI: Mrs Sharpe is a 57YO female admitted to [facility] 10/27 - 10/28/2017 who was discharged earlier today with diagnosis of gram negative sepsis 2nd obstructing L renal stone s/p stent placement via Mina Jerome MD urology. She arrived at home to begin feeling worsening malaise and fever for which she returns. She continues to has mild/mod L flank pain, but denies complaints otherwise, specifically no chest pain, SOB, cough, congestion, abdominal pain, dysuria, or other issues. PMedHx, PSurgHx, SocHx, & FamHx: reviewed and unchanged compared to H&P dated ROS: as above, otherwise reviewed and all were negative vitals: Vital Signs Temp 38.2 C 10/28/17 19:22 Pulse 90 10/28/17 19:22 Resp 18 10/28/17 19:22 BP 139/86 10/28/17 19:22 Pulse Ox 94 10/28/17 19:22 Intake & Output 10/27/17 10/28/17 10/28/17 23:59 11:59 23:59 Weight 72.575 kg Constitutional: NAD, normally developed, overweight white female HEENM: atraumatic; sclera/conjunctiva: anicteric/clear; hearing: clinically intact; oropharynx: clear, mucosa moist Neck: soft tissue: no nuchal rigidity; thyroid: normal Pulmonary: clear to auscultation bilaterally, good aeration, no accessory muscle use CV: RR/RR, normal S1S2, no carotid bruit, no jugular venous distention, 2+ B DP/ PT, no edema Abdominal: soft, non-distended, non-tender, no rebound/guarding/rigidity, normoactive bowel sounds, no hepatosplenomegaly or masses, mild L costovertebral angle tendernesMusculoskeletal: general: grossly intact, no tenderness with palpation Integumental: normal appearance and texture of exposed skin Psychiatric orientation: AA&O to PPS affect: calm mood: cooperative eye contact: fair to good content: reliable responses: timely insight: good Testing: Lab Results 10/28/17 10/28/17 Range/Units 19:17 19:17 WBC 5.2 (3.5-10.8) 10^3/ul RBC 3.62 L (4.0-5.4) 10^6/ul Hgb 10.2 L (12.0-16.0) g/dl Hct 31 L (35-47) % MCV 85 (80-97) fL MCH 28 (27-31) pg MCHC 33 (31-36) g/dl RDW 15 (10.5-15) % Plt Count 109 L (150-450) 10^3/ul MPV 9 (7.4-10.4) um3 Neut % (Auto) 79.8 (38-83) % Lymph % (Auto) 12.3 L (25-47) % [place] % (Auto) 6.8 (0-7) % Eos % (Auto) 0.8 (0-6) % Baso % (Auto) 0.3 (0-2) % Absolute Neuts (auto) 4.2 (1.5-7.7) 10^3/ul Absolute Lymphs (auto) 0.6 L (1.0-4.8) 10^3/ul Absolute Monos (auto) 0.4 (0-0.8) 10^3/ul Absolute Eos (auto) 0 (0-0.6) 10^3/ul Absolute Basos (auto) 0 (0-0.2) 10^3/ul Absolute Nucleated RBC 0 10^3/ul Nucleated RBC % 0 Sodium 136 (133-145) mmol/L Potassium 3.6 (3.5-5.0) mmol/L Chloride 108 (101-111) mmol/L Carbon Dioxide 21 L (22-32) mmol/L Anion Gap 7 (2-11) mmol/L BUN 7 (6-24) mg/dL Creatinine 0.66 (0.51-0.95) mg/dL Est GFR ( Amer) 119.6 (>60) Est GFR (Non-Af Amer) 93.0 (>60) BUN/Creatinine Ratio 10.6 (8-20) Glucose 111 H (70-100) mg/dL Calcium 9.3 (8.6-10.3) mg/dL Total Bilirubin 0.40 (0.2-1.0) mg/dL AST 40 H (13-39) U/L ALT 32 (7-52) U/L Alkaline Phosphatase 69 (34-104) U/L Total Protein 6.8 (6.4-8.9) g/dL Albumin 3.6 (3.2-5.2) g/dL Globulin 3.2 (2-4) g/dL Albumin/Globulin Ratio 1.1 (1-3) CXR, personally reviewed: no acute process Impression: 57F presenting with fever & malaise 2nd gram negative sepsis 2nd obstructive L pyelonephritis s/p stenting DIAGNOSIS & PLAN Primary gram negative sepsis 2nd obstructive L pyelonephritis s/p stenting : give IV piperacillin/tazobactam in ED : will switch ABX to ceftriaxone 1g daily starting at 0400 : IVFs : supportive care Secondary HTN : review meds once reconciled asthma : review meds once reconciled depression : review meds once reconciled Admission Rational: inpatient for gram negative sepsis requiring IVFs & IV ABX DVTp: heparin SQ Code Status: full History & Physical Patient: MAGUI MAY /Age: 08 1960 57 Medical Record#: [id number] Admission Date: 10/27/17 Provider: Kindra Bañuelos DO CC: Dr. Jamison * HISTORY AND PHYSICAL: DATE OF ADMISSION: 10/27/17 PRIMARY CARE PROVIDER: Dr. Jamison. CHIEF COMPLAINT: Altered mental status. HISTORY OF PRESENT ILLNESS: Ms. May is a 57-year-old female who presents to the emergency room with complaints of altered mental status. According to the patient and her daughter, she developed right-sided flank pain last evening. She also had associated fever. She made an appointment to see a provider at her primary care provider's office today. At that time, she was diagnosed with a urinary tract infection, prescribed Cipro and Pyridium, and sent home. The patient states she took a dose of Cipro around noon and shortly thereafter vomited. She states after the vomiting episode, she then was incontinent of a very large amount of urine. The patient did admit to feeling nauseous prior to the episode of vomiting. As the day progressed, she was noted to be increasingly disoriented and sleepy. This evening, the patient had odd behaviors and therefore her daughter had her brought to the emergency room. At this point, the patient states that she is feeling okay. She continues to have right-sided flank pain. PAST MEDICAL HISTORY: 1. History of kidney stones in the past. 2. Hypertension. 3. Asthma. 4. Depression. PAST SURGICAL HISTORY: 1. x2. 2. Stent/stone removal in the past. MEDICATIONS: 1. Prozac 60 mg p.o. daily. 2. Pyridium 100 mg p.o. t.i.d. p.r.n. bladder spasms. 3. Cipro 500 mg p.o. b.i.d. 4. Singulair 10 mg p.o. daily. 5. [place] 7.5/325 one tab p.o. q.4 hours p.r.n. pain. 6. Amlodipine 5 mg p.o. daily. ALLERGIES: CODEINE, DEMEROL, SULFA FAMILY HISTORY: Mom is living; she is 75; she has hypertension, diabetes, and Alzheimer's. Dad at the age of 55 of lung cancer. SOCIAL HISTORY: The patient is a nonsmoker. She drinks alcohol rarely. She previously worked at [employer]. She is . She has 3 children. Her daughter, Richa is her healthcare proxy. REVIEW OF SYSTEMS: A complete 11-system review of systems is obtained. Pertinent positives and negatives are as per HPI and in addition, the patient does admit to poor appetite on the day prior to admission as well as hematuria, but no significant dysuria. Otherwise, review of systems is negative. PHYSICAL EXAMINATION GENERAL: The patient is a well-developed, middle-aged female, sitting up in the stretcher, in no acute distress. VITAL SIGNS: Blood pressure 102/62, pulse 101, respirations 16, temp 99.0, O2 sat 98% on room air. HEENT: Pupils are equal and round. Extraocular muscles are intact. Oropharynx is clear. Oral mucosa is moist. There is no submandibular, cervical, or supraclavicular adenopathy. Thyroid is not enlarged. No thyroid nodules are noted. PULMONARY: Lungs are clear to auscultation with decreased breath sounds at the bases bilaterally. CARDIAC: Normal S1, S2. Heart rate is mildly tachycardic. I do not appreciate any murmurs. There is no lower extremity edema. ABDOMEN: Bowel sounds present. Abdomen is soft, nontender, and nondistended. The patient does have mild right CVA tenderness. MUSCULOSKELETAL: There is no cyanosis or clubbing of the digits. There is full active range of motion of all 4 extremities. NEUROLOGIC: Cranial nerves II through XII are grossly intact. Sensation is intact to light touch throughout. Strength is 5/5 and symmetric in both upper and lower extremities bilaterally. SKIN: Warm and dry. There are no rashes. PSYCH: The patient is alert. She is oriented x3. Affect appears appropriate. DIAGNOSTIC STUDIES/LAB DATA: WBC 12.2, hemoglobin 11.6, hematocrit 35, platelets 136. Sodium 132, potassium 3.6, chloride 101, CO2 20, BUN 14, creatinine 0.95, glucose 135, lactic acid 3.0, calcium 9.4. Bilirubin 0.9, AST 26, ALT 25, alk phos 85. CRP 159.83. Albumin 4.1, lipase less than 10. Urinalysis reveals a specific gravity of 1.005, positive nitrites, 3+ leukocyte esterase, 2+ wbc's, and 1+ bacteria. Abdomen and pelvis CT, there are multiple bilateral nonobstructing renal calculi. There is mild left hydronephrosis and hydroureter. There is a 7 mm calculus noted in the distal left ureter. There is associated left perinephric stranding. ASSESSMENT AND PLAN: Ms. May is a 57-year-old female with past history of kidney stones, hypertension, depression and asthma, who presents to the emergency room with altered mental status after being seen at her primary care provider's office for flank pain and fever and being diagnosed with the urinary tract infection. 1. Likely left pyelonephritis with obstructing left ureteral stone. The plan is for the patient to go urgently to the operating room. She has received Zosyn and vancomycin in the emergency room. We will transition her to ceftriaxone 1 g IV daily, beginning at 0500 this morning. Cultures will be obtained in the operating room. The patient is septic secondary to the likely pyelonephritis. She meets sepsis criteria with her tachycardia and leukocytosis. She does not meet for severe sepsis criteria. She has received 2 L of normal saline bolus in the emergency room and will then have continued maintenance fluids. The patient will have morphine and [place] available for pain. 2. Hypertension. The patient's blood pressure currently is low normal. This will need to be monitored closely. I will continue her amlodipine; however, if she goes hypotensive, this can be held. 3. Depression. We will continue Prozac. 4. Asthma. There are no signs of exacerbation at this point. She will continue on her Singulair. I will add p.r.n. albuterol as needed for shortness of breath or wheezing. 5. DVT prophylaxis. According to the Adult Thrombosis Prophylaxis Risk Factor Assessment Guide, the patient has a total risk factor score of 2 making her moderate risk. SCDs will be utilized as DVT prophylaxis. Chemical prophylaxis will not be utilized as the patient is going urgently to the operating room. 6. Code status is full. TIME SPENT: Sixty-five minutes was spent admitting this patient. [id number]/[facility] #: [id number] Kindra Bañuelos DO Dictated Date/Time: 10/27/17 0053 Transcribed Date/Time 10/27/17 0158 Copy to: CC: Kindra Bañuelos DO
--- NOTE | 2017-10-28 20:52 | RAD ---
Indication: Fever, right lower lobe Rales. 2 views of the chest including dual energy PA views demonstrates. Bronchial thickening and interstitial edema. Bilateral pleural effusions are noted. No alveolar consolidation is noted. This is new since previous exam of May 27, 2010. IMPRESSION: Perihilar infiltrates and interstitial edema consistent with vascular congestion with bilateral pleural effusions.
[2017-10-28] MEDS ORDERED: Famotidine TAB* 20 MG PO PRN (20:57)
[2017-10-28] MEDS ORDERED: CMCS:Melatonin (NF) 3 MG TAB PO PRN (21:02)
[2017-10-28] MEDS ORDERED: Ondansetron INJ* 2 MG/ML VIAL IV PRN (21:02)
[2017-10-28] MEDS ORDERED: NS 0.9% 1000 ML* 1,000 ML IV SCH (21:15)
[2017-10-28] MEDS: HYDROcodone/ACET. 7.5/325 LIQ* 15 ML UDC PO PRN (22:12)
--- NOTE | 2017-10-28 22:17 | ED ---
Gloria Boykin Gabriel, scribed for Too Douglas MD on 10/28/17 at 1907 . HPI Febrile Illness - HPI Summary HPI Summary: This patient is a 57 year old F BIBA to [facility] with a chief complaint of a fever since earlier today. Pt was seen in 09-28-17 and admitted for fever and kidney pain dx of kidney stone and sepsis. Pt received a stent and was discharged home today and told to return to the ED if she developed a fever. Currently she is on Abx. Patient reports weakness, diaphoresis, chills, SOB, headache, hematuria , and ABD pain. Patient denies cough. - History of Current Complaint Time Seen by Provider: 10/28/17 19:00 Hx Obtained From: Patient Onset/Duration: Started Days Ago, Still Present Timing: Constant Initial Severity: Moderate Current Severity: Moderate Associated Signs and Symptoms: Other: - weakness, diaphoresis, chills, SOB, headache, hematuria, and ABD pain - Additional Pertinent History Primary Care Physician: [id number] - Allergy/Home Medications Allergies/Adverse Reactions: Allergies Allergy/AdvReac Type Severity Reaction Status Date / Time codeine Allergy Unknown Verified 10/26/17 21:13 Reaction Details hydrochlorothiazide Allergy Shortness Verified 10/27/17 08:28 of Breath meperidine [From Demerol] Allergy Unknown Verified 10/26/17 21:13 Reaction Details Sulfa (Sulfonamide Allergy Shortness Verified 10/26/17 21:13 Antibiotics) of Breath Home Medications: Home Medications FLUoxetine CAP* [PROzac CAP*] 60 mg PO DAILY 10/28/17 [History Confirmed ] amLODIPine TAB* [Norvasc 5 mg TAB*] 5 mg PO DAILY 10/28/17 [History Confirmed ] PMH/Surg Hx/FS Hx/Imm Hx Cardiovascular History: Reports: Hx Hypertension Respiratory History: Reports: Hx Asthma GI History: Reports: Hx Gastroesophageal Reflux Disease History: Reports: Hx Kidney Infection, Hx Kidney Stones Comment Only: Other Problems/Disorders - s/p left ureter stent Musculoskeletal History: Reports: Hx Fibromyalgia Sensory History: Reports: Hx Contacts or Glasses Denies: Hx Hearing Aid Opthamlomology History: Reports: Hx Contacts or Glasses Neurological History: Reports: Hx Migraine Denies: Hx Dementia, Hx Developmental Delay, Hx Nerve Disease, Hx Seizures, Hx Spinal Cord Injury, Hx Transient Ischemic Attacks (TIA) - Surgical History Surgery Procedure, Year, and Place: stent placement, kidney stone removal, c- section x2 Infectious Disease History: Denies: Traveled Outside the [place] in Last 30 Days - Family History Known Family History: Positive: Renal Disease - KIDNEY STONES - Social History Alcohol Use: None Substance Use Type: Reports: None Smoking Status (MU): Former Smoker Review of Systems Positive: Fever, Chills, Skin Diaphoresis Positive: Shortness Of Breath Positive: Abdominal Pain Positive: hematuria Positive: Headache, Weakness All Other Systems Reviewed And Are Negative: Yes Physical Exam - Summary Physical Exam Summary: Appearance: appears sickly Skin: Warm, Dry, No rash Eyes: Normal, PERRL, EOMI, sclera anicteric ENT: periorbital edema Neck: Supple, nontender Respiratory: rales at right base Cardiovascular: S1, S2, no murmur, no rub, no gallop Abdomen: Soft, nontender, no organomegaly Bowel sounds: Present Musculoskeletal: Normal, Strength/ROM Intact, no edema, pulses symmetrical Neurological: Normal, A&Ox3, cranial nerves II-XII WNL, follows commands, gait not tested, sensation intact to pin and light touch Psychiatric: affect normal, behavior appropriate, dressed appropriately, judgment intact Triage Information Reviewed: Yes Vital Signs Reviewed: Yes Diagnostics - Laboratory Result Diagrams: 10/28/17 19:17 10/28/17 19:17 Lab Statement: Any lab studies that have been ordered have been reviewed, and results considered in the medical decision making process. - Radiology CXR Radiology Interpretation Completed By: Radiologist - Perihilar infiltrates and interstitial edema consistent with vascular congestion with bilateral pleural effusions. ED physician has reviewed this radiology report. Course/Dx - Course Assessment/Plan: This patient is a 57 year old F BIBA to [facility] with a chief complaint of a fever since earlier today. Pt was seen in 09-28-17 and admitted for fever and kidney pain dx of kidney stone and sepsis. Pt received a stent and was discharged home today and told to return to the ED if she developed a fever. Currently she is on Abx. Patient reports weakness, diaphoresis, chills, SOB, headache, hematuria, and ABD pain. Patient denies cough. CXR reveals, per radiologist, Perihilar infiltrates and interstitial edema consistent with vascular. congestion with bilateral pleural effusions. Test results with no significant abnormalities. In the ED course the patient was given IV fluids, sodium chloride, and tylenol. Dx recurrent fever with urosepsis. We discussed patient care with Dr. Adamson and he accepts the patient for admission. Patient will be admitted. The patient is agreeable with this plan. - Diagnoses Provider Diagnoses: Recurrent fever, urosepsis, PNA (pneumonia) - Provider Notifications Discussed Care Of Patient With: Mario Adamson Time Discussed With Above Provider: 19:32 Instructed by Provider To: Admit As Inpatient Discharge - Discharge Plan Condition: Fair Disposition: ADMITTED TO [facility] The documentation as recorded by the Gloria melchor Gabriel accurately reflects the service I personally performed and the decisions made by me, Too Douglas MD.
[2017-10-28 22:21] LABS: INR 0.97 (0.77-1.02)
[2017-10-28] MEDS: Albuterol 2.5 MG/3 ML NEB.SOL* (0.083%) INH PRN (22:48)
[2017-10-28] MEDS: amLODIPine TAB* 5 MG PO SCH (22:53)
[2017-10-29] MEDS: Acetaminophen TAB* 325 MG PO PRN ×2 (01:30→16:07)
[2017-10-29] MEDS ORDERED: Butalb/Acetamin/Caff TAB* 1 TAB PO ONE (01:49)
[2017-10-29] MEDS: HYDROcodone/ACET. 7.5/325 LIQ* 15 ML UDC PO PRN ×4 (02:22→21:05)
[2017-10-29] MEDS: cefTRIAXone VIAL(*) 1,000 MG in NS 0.9% 50 ML* 50 ML IVPB SCH (04:43)
[2017-10-29] MEDS: Heparin VIAL(*) 5000 UNITS/ML VIAL (FIVE THOUSAND) SUBCUT SCH ×3 (05:49→21:06)
[2017-10-29 06:18] LABS: ABS Basophils 0 10^3/ul (0-0.2); ABS Eosinophils 0 10^3/ul (0-0.6); ABS Lymphocytes 0.8 10^3/ul (1.0-4.8); ABS Monocytes 0.4 10^3/ul (0-0.8); ABS Neutrophils 2.9 10^3/ul (1.5-7.7); ABS Nucleated RBC 0 10^3/ul; Eosinophil % 0.3 % (0-6); Hematocrit 29 % (35-47); Hemoglobin 9.6 g/dl (12.0-16.0); Mean Corpuscular HGB Conc 34 g/dl (31-36); Mean Corpuscular Hemoglobin 29 pg (27-31); Mean Corpuscular Volume 85 fL (80-97); Mean Platelet Volume 9 um3 (7.4-10.4); Nucleated Red Blood Cells % 0; Platelet Count 108 10^3/ul (150-450); Red Blood Count 3.36 10^6/ul (4.0-5.4); Red Cell Distribution Width 14 % (10.5-15); White Blood Count 4.2 10^3/ul (3.5-10.8)
[2017-10-29 06:34] LABS: EGFR Non-African American 105.8 (>60)
[2017-10-29] MEDS: amLODIPine TAB* 5 MG PO SCH (08:25)
[2017-10-29] MEDS: Montelukast Sodium TAB* 10 MG PO SCH (08:25)
[2017-10-29] MEDS: Docusate CAP* 100 MG PO SCH ×2 (08:25→21:08)
[2017-10-29] MEDS: FLUoxetine CAP* 20 MG PO SCH (08:25)
[2017-10-29] MEDS: Albuterol 2.5 MG/3 ML NEB.SOL* (0.083%) INH PRN (08:27)
[2017-10-29] MEDS: Butalb/Acetamin/Caff TAB* 1 TAB PO PRN ×2 (08:57→23:47)
[2017-10-29] MEDS ORDERED: amLODIPine TAB* 5 MG PO SCH (09:00)
--- NOTE | 2017-10-29 13:01 | PN ---
Subjective Date of Service: 10/29/17 Interval History: Patient readmitted overnight for fever and recurrent abdominal/back pain. Patient states that her pain is now resolved. Patient states that she was concerned that she was dying at home due to fever and pain. Patient states that she has a minor headache which she often feels before she develops a migraine. Patient has minor shortness of breath without hypoxia and interstitial edema on CXR. Patient denies current F/C, CP, N/V, abdominal pain, diarrhea, constipation , dysuria, or other pain. Family History: Unchanged from Admission Social History: Unchanged from Admission Past Medical History: Unchanged from Admission Objective Active Medications: Acetaminophen (Tylenol Tab*) 650 mg PO Q6H PRN PRN Reason: FEVER/PAIN Last Admin: 10/29/17 01:30 Dose: 650 mg Acetaminophen/Butalbital/Caffeine (Fioricet Tab*) 1 tab PO Q12H PRN PRN Reason: MIGRAINE HEADACHE Last Admin: 10/29/17 08:57 Dose: 1 tab Hydrocodone Bitart/Acetaminophen (Nortab 7.5/325 Liq*) 15 ml PO Q4H PRN PRN Reason: PAIN Last Admin: 10/29/17 08:57 Dose: 15 ml Albuterol (Ventolin 2.5 Mg/3 Ml Neb.Maira*) 2.5 mg INH Q2H PRN PRN Reason: SOB/WHEEZING Last Admin: 10/29/17 08:27 Dose: 2.5 mg Amlodipine Besylate (Norvasc Tab*) 5 mg PO DAILY [facility] Last Admin: 10/29/17 08:25 Dose: 5 mg Docusate Sodium (Colace Cap*) 200 mg PO BID OTTO Last Admin: 10/29/17 08:25 Dose: 200 mg Famotidine (Pepcid Tab*) 20 mg PO BID PRN PRN Reason: gerd Fluoxetine HCl (Prozac Cap*) 60 mg PO DAILY [facility] Last Admin: 10/29/17 08:25 Dose: 60 mg Heparin Sodium (Porcine) (Heparin Vial(*)) 5,000 units SUBCUT Q8HR [facility] Last Admin: 10/29/17 05:49 Dose: 5,000 units Ceftriaxone Sodium 1,000 mg/ (Sodium Chloride) 50 mls @ 200 mls/hr IVPB Q24H [facility] Last Admin: 10/29/17 04:43 Dose: 200 mls/hr Melatonin (Melatonin (Nf)) 3 mg PO BEDTIME PRN; Protocol PRN Reason: Sleep Montelukast Sodium (Singulair Tab*) 10 mg PO DAILY [facility] Last Admin: 10/29/17 08:25 Dose: 10 mg Ondansetron HCl (Zofran Inj*) 4 mg IV Q6H PRN PRN Reason: NAUSEA Vital Signs - 8 hr 10/29/17 10/29/17 10/29/17 07:51 08:29 08:57 Temperature 98.8 F Pulse Rate 91 92 Respiratory 18 16 20 Rate Blood Pressure 129/84 (mmHg) O2 Sat by Pulse 88 92 Oximetry 10/29/17 10/29/17 11:02 11:45 Temperature 98.5 F Pulse Rate 93 Respiratory 18 20 Rate Blood Pressure 134/79 (mmHg) O2 Sat by Pulse 93 Oximetry Oxygen Devices in Use Now: None Appearance: Patient is a 57yo female who appears stated age and is sitting in the bed in [facility]. Eyes: No Scleral Icterus, PERRLA Ears/Nose/Mouth/Throat: NL Teeth, Lips, Gums, Clear Oropharnyx, Mucous Membranes Moist Neck: NL Appearance and Movements; NL JVP, Trachea Midline Respiratory: Symmetrical Chest Expansion and Respiratory Effort, - - Slight crackles in B/L lower lobes. Cardiovascular: NL Sounds; No Murmurs; No JVD, RRR, No Edema Abdominal: NL Sounds; No Tenderness; No Distention, No Hepatosplenomegaly, - - No CVA tenderness. Lymphatic: No Cervical Adenopathy Extremities: No Edema, No Clubbing, Cyanosis Skin: No Rash or Ulcers, No Nodules or Sclerosis Neurological: Alert and Oriented x 3, NL Sensation, NL Muscle Strength and Tone , - - CN II-XII intact. Result Diagrams: 10/29/17 06:00 10/29/17 06:00 Assess/Plan/Problems-Billing Assessment: Patient is a 57yo female with a PMH significant for HTN, and Nephrolithiasis who presents with fevers and abdominal pain after being discharged and home for several hours. Patient was previously admitted for nephrolithiasis and pyelonephritis. - Patient Problems (1) Pyelonephritis Current Visit: No Status: Acute Code(s): N12 - TUBULO-INTERSTITIAL NEPHRITIS , NOT SPCF ACUTE OR CHRONIC SNOMED Code(s): 41492236 Comment: With bacteremia. From Pansensitive E coli. Continue Ceftriaxone. Moderately elevated temperatures. No tachycardia, hypotension, WBC count normal. Does not meet SIRS criteria. (2) Nephrolithiasis Current Visit: No Status: Acute Code(s): N20.0 - CALCULUS OF KIDNEY SNOMED Code(s): 52749845 Comment: Appreciate urology consult. Patient was obstructed and stented overnight. Symptomatically much improved. This is patient's third episode of symptomatic nephrolithiasis. Patient states that she was previously told that her stones were calcium oxalate. Patient drinks lots of water. Unable to give thiazide or thiazide-like diuretic due to previous hypersensitivity reactions. Will pursue prophylactic treatment pending outpatient urinary chemistries. (3) Pulmonary edema Current Visit: Yes Status: Acute Code(s): J81.1 - CHRONIC PULMONARY EDEMA SNOMED Code(s): 36497205 Comment: Fluid overload on CXR with slight SOB. Crackles in B/L lung bases. Will get Echo when able. No hypoxia. Will diurese if worsening. (4) Asthma Current Visit: No Status: Acute Code(s): J45.909 - UNSPECIFIED ASTHMA, UNCOMPLICATED SNOMED Code(s): 259920277 Comment: Asymptomatic, Ventolin PRN. (5) HTN (hypertension) Current Visit: No Status: Acute Code(s): I10 - ESSENTIAL (PRIMARY) HYPERTENSION SNOMED Code(s): 33791744 Comment: Normotensive, continue amlodipine. (6) Anxiety Current Visit: No Status: Acute Code(s): F41.9 - ANXIETY DISORDER, UNSPECIFIED SNOMED Code(s): 71004865 Comment: Continue Prozac. Appears very anxious. (7) DVT prophylaxis Current Visit: No Status: Acute Code(s): QQN1553 - SNOMED Code(s): 728176252 Comment: SCDs (8) Full code status Current Visit: No Status: Acute Code(s): Z78.9 - OTHER SPECIFIED HEALTH STATUS SNOMED Code(s): 258658887 Status and Disposition: Patient is admitted inpatient.
[2017-10-30] MEDS: cefTRIAXone VIAL(*) 1,000 MG in NS 0.9% 50 ML* 50 ML IVPB SCH (05:21)
[2017-10-30] MEDS: Heparin VIAL(*) 5000 UNITS/ML VIAL (FIVE THOUSAND) SUBCUT SCH ×3 (05:21→21:38)
[2017-10-30 05:24] LABS: ABS Basophils 0 10^3/ul (0-0.2); ABS Eosinophils 0.1 10^3/ul (0-0.6); ABS Lymphocytes 1.3 10^3/ul (1.0-4.8); ABS Monocytes 0.6 10^3/ul (0-0.8); ABS Neutrophils 2.9 10^3/ul (1.5-7.7); ABS Nucleated RBC 0 10^3/ul; Eosinophil % 1.1 % (0-6); Hematocrit 30 % (35-47); Lymphocyte % 26.7 % (25-47); Mean Corpuscular HGB Conc 34 g/dl (31-36); Mean Corpuscular Hemoglobin 28 pg (27-31); Mean Corpuscular Volume 84 fL (80-97); Mean Platelet Volume 9 um3 (7.4-10.4); Nucleated Red Blood Cells % 0.1; Platelet Count 139 10^3/ul (150-450); Red Blood Count 3.53 10^6/ul (4.0-5.4); Red Cell Distribution Width 14 % (10.5-15); White Blood Count 4.9 10^3/ul (3.5-10.8)
[2017-10-30 05:50] LABS: EGFR Non-African American 103.8 (>60)
[2017-10-30] MEDS: HYDROcodone/ACET. 7.5/325 LIQ* 15 ML UDC PO PRN ×3 (06:37→19:26)
[2017-10-30] MEDS: amLODIPine TAB* 5 MG PO SCH (09:00)
[2017-10-30] MEDS: Potassium Chlor TAB* 20 MEQ TAB.ER PO SCH ×2 (09:00→21:36)
[2017-10-30] MEDS: Docusate CAP* 100 MG PO SCH ×2 (09:00→21:36)
[2017-10-30] MEDS: FLUoxetine CAP* 20 MG PO SCH (09:00)
[2017-10-30] MEDS ORDERED: Ferrous Sulfate TAB* 325 MG PO SCH (09:00)
[2017-10-30] MEDS: Montelukast Sodium TAB* 10 MG PO SCH (09:00)
--- NOTE | 2017-10-30 11:34 | PN ---
Subjective Date of Service: 10/30/17 Interval History: Patient is feeling significantly better. Patient denies any SOB, CP, dysuria, abdominal pain, diarrhea, constipation, dizziness, palpitations, F/C, Changes in vision, headache, or other pain. Family History: Unchanged from Admission Social History: Unchanged from Admission Past Medical History: Unchanged from Admission Objective Active Medications: Acetaminophen (Tylenol Tab*) 650 mg PO Q6H PRN PRN Reason: FEVER/PAIN Last Admin: 10/29/17 16:07 Dose: 650 mg Acetaminophen/Butalbital/Caffeine (Fioricet Tab*) 1 tab PO Q12H PRN PRN Reason: MIGRAINE HEADACHE Last Admin: 10/29/17 23:47 Dose: 1 tab Hydrocodone Bitart/Acetaminophen (Nortab 7.5/325 Liq*) 15 ml PO Q4H PRN PRN Reason: PAIN Last Admin: 10/30/17 06:37 Dose: 15 ml Albuterol (Ventolin 2.5 Mg/3 Ml Neb.Maira*) 2.5 mg INH Q2H PRN PRN Reason: SOB/WHEEZING Last Admin: 10/29/17 08:27 Dose: 2.5 mg Amlodipine Besylate (Norvasc Tab*) 5 mg PO DAILY [facility] Last Admin: 10/30/17 09:00 Dose: 5 mg Docusate Sodium (Colace Cap*) 200 mg PO BID [facility] Last Admin: 10/30/17 09:00 Dose: 200 mg Famotidine (Pepcid Tab*) 20 mg PO BID PRN PRN Reason: gerd Fluoxetine HCl (Prozac Cap*) 60 mg PO DAILY [facility] Last Admin: 10/30/17 09:00 Dose: 60 mg Heparin Sodium (Porcine) (Heparin Vial(*)) 5,000 units SUBCUT Q8HR [facility] Last Admin: 10/30/17 05:21 Dose: 5,000 units Ceftriaxone Sodium 1,000 mg/ (Sodium Chloride) 50 mls @ 200 mls/hr IVPB Q24H [facility] Last Admin: 10/30/17 05:21 Dose: 200 mls/hr Melatonin (Melatonin (Nf)) 3 mg PO BEDTIME PRN; Protocol PRN Reason: Sleep Montelukast Sodium (Singulair Tab*) 10 mg PO DAILY [facility] Last Admin: 10/30/17 09:00 Dose: 10 mg Ondansetron HCl (Zofran Inj*) 4 mg IV Q6H PRN PRN Reason: NAUSEA Potassium Chloride (Klor Con Er Tab*) 20 meq PO BID OTTO Stop: 10/30/17 21:01 Last Admin: 10/30/17 09:00 Dose: 20 meq Vital Signs - 8 hr 10/30/17 10/30/17 08:00 09:00 Respiratory 18 18 Rate Oxygen Devices in Use Now: None Appearance: Patient is a 57yo female who appears stated age and is sitting in the bed in [facility]. Eyes: No Scleral Icterus, PERRLA Ears/Nose/Mouth/Throat: NL Teeth, Lips, Gums, Clear Oropharnyx, Mucous Membranes Moist Neck: NL Appearance and Movements; NL JVP, Trachea Midline Respiratory: Symmetrical Chest Expansion and Respiratory Effort, Clear to Auscultation Cardiovascular: NL Sounds; No Murmurs; No JVD, RRR, No Edema Abdominal: NL Sounds; No Tenderness; No Distention, No Hepatosplenomegaly Lymphatic: No Cervical Adenopathy Extremities: No Edema, No Clubbing, Cyanosis Skin: No Rash or Ulcers, No Nodules or Sclerosis Neurological: Alert and Oriented x 3, NL Sensation, NL Muscle Strength and Tone , - - CN II-XII intact. Result Diagrams: 10/30/17 04:55 10/30/17 04:55 Assess/Plan/Problems-Billing Assessment: Patient is a 57yo female with a PMH significant for HTN, and Nephrolithiasis who presents with fevers and abdominal pain after being discharged and home for several hours. Patient was previously admitted for nephrolithiasis and pyelonephritis. - Patient Problems (1) Pyelonephritis Current Visit: No Status: Acute Code(s): N12 - TUBULO-INTERSTITIAL NEPHRITIS , NOT SPCF ACUTE OR CHRONIC SNOMED Code(s): 68796941 Comment: With bacteremia. From Pansensitive E coli. Continue Ceftriaxone. Moderately elevated temperatures. No tachycardia, hypotension, WBC count normal. Does not meet SIRS criteria. SOFA score 1 on admission. Plan for deescalation of treatment 48hrs after last fever which occured on 10/29 in the afternoon. (2) Nephrolithiasis Current Visit: No Status: Acute Code(s): N20.0 - CALCULUS OF KIDNEY SNOMED Code(s): 70466118 Comment: Appreciate urology consult. Patient was obstructed and stented on 10/27. Symptomatically much improved. This is patient's third episode of symptomatic nephrolithiasis. Patient states that she was previously told that her stones were calcium oxalate. Patient drinks lots of water. Unable to give thiazide or thiazide-like diuretic due to previous hypersensitivity reactions. Will pursue prophylactic treatment pending outpatient urinary chemistries. (3) Pulmonary edema Current Visit: Yes Status: Acute Code(s): J81.1 - CHRONIC PULMONARY EDEMA SNOMED Code(s): 16370669 Comment: SOB imporoved. Echo pending. No hypoxia. No indication for diuresis at this time. (4) Asthma Current Visit: No Status: Acute Code(s): J45.909 - UNSPECIFIED ASTHMA, UNCOMPLICATED SNOMED Code(s): 935500420 Comment: Asymptomatic, Ventolin PRN. (5) HTN (hypertension) Current Visit: No Status: Acute Code(s): I10 - ESSENTIAL (PRIMARY) HYPERTENSION SNOMED Code(s): 77456527 Comment: Normotensive, continue amlodipine. (6) Anxiety Current Visit: No Status: Acute Code(s): F41.9 - ANXIETY DISORDER, UNSPECIFIED SNOMED Code(s): 47392581 Comment: Continue Prozac. Appears less anxious today. (7) DVT prophylaxis Current Visit: No Status: Acute Code(s): JUL7710 - SNOMED Code(s): 164914692 Comment: SCDs (8) Full code status Current Visit: No Status: Acute Code(s): Z78.9 - OTHER SPECIFIED HEALTH STATUS SNOMED Code(s): 047994315 Status and Disposition: Patient is admitted inpatient.
--- NOTE | 2017-10-30 20:15 | ECHO ---
Patient: MAGUI BRADFORD [facility] Rec#: [id number] : 1960 Date: 10/30/2017 Age: 57y Height: 162.6 cm / 64.0 in Weight: 72.6 kg / 160.0 lbs Sex: F BSA: 1.8 Room#: 403 Admit Date#: 10/28/2017 Type: Inpatient Referring: Angel Cloud Reading: Jovany Alvarenga MD Photographic Developer And Printer: Blanche Casillas RN RDCS CC: Juan Luis Jamison MD Transthoracic Echocardiogram Indication: Pulmonary edema BP: 137/83 HR: 92 Rhythm: NSR Findings History: HTN, asthma, former smoker, kidney stones, obstructive pyelonephritis S/P stenting Technical Comments: The study quality is fair. The study is technically limited due to the patient's smoking history. Completed at 1225. Left Ventricle: The left ventricular chamber size is decreased. There is no left ventricular hypertrophy. Global left ventricular wall motion and contractility are within normal limits. There is normal left ventricular systolic function. The estimated ejection fraction is 60-65%. Normal left ventricular diastolic filling is observed. Left Atrium: The left atrial chamber size is normal. Right Ventricle: The right ventricular chamber size and systolic function are within normal limits. Right Atrium: The right atrial cavity size is normal. Aortic Valve: The aortic valve structure is not well visualized. The aortic valve leaflets are mildly thickened. There is a trace of aortic regurgitation. There is no evidence of aortic stenosis. Mitral Valve: The mitral valve leaflets are mildly thickened. There is a trace of mitral regurgitation. There is no evidence of mitral stenosis. Tricuspid Valve: The tricuspid valve leaflets are normal. There is trace tricuspid regurgitation. Unable to estimate the right ventricular systolic pressure. There is no tricuspid stenosis. Pulmonic Valve: The pulmonic valve structure is not well visualized. There is a trace pulmonic regurgitation. There is no pulmonic stenosis. Pericardium: There is no significant pericardial effusion. A pericardial fat pad is visualized. Aorta: There is no dilatation of the ascending aorta. There is no dilatation of the aortic arch. There is no dilation of the aortic root. Pulmonary Artery: The main pulmonary artery is not well visualized. Venous: The inferior vena cava appears normal in size. There is a greater than 50% respiratory change in the inferior vena cava dimension. Summary: There was not any prior study for comparison. Conclusions Global left ventricular wall motion and contractility are within normal limits. There is normal left ventricular systolic function. The estimated ejection fraction is 60-65%. There is no evidence of aortic stenosis. There is a trace of mitral regurgitation. There is trace tricuspid regurgitation. Unable to estimate the right ventricular systolic pressure. There is no significant pericardial effusion. Measurements Name Value Normal Range RVDdMajor (2D) 3 cm (2.2 - 4.4) RAd ISD 4CH 4.3 cm (3.4 - 4.9) RA (A4C)W 3.3 cm (2.9 - 4.6) IVSd (2D) 0.9 cm (0.6 - 1) LVPWd (2D) 0.9 cm (0.6 - 1) LVIDd (2D) 3.4 cm (3.6 - 5.4) LVIDs (2D) 2 cm - LV FS (2D) 41 % (25 - 45) Aortic Annulus 1.9 cm (1.4 - 2.6) Ao root diameter (2D) 3 cm (2.1 - 3.5) Ascending Ao 2.9 cm (2.1 - 3.4) Aortic arch 2.7 cm (1.8 - 3.4) LA dimension (AP) 2D 3.4 cm (2.3 - 3.8) LAd ISD 4CH 4.1 cm (2.9 - 5.3) LA ISD 4CH W 3.6 cm (2.5 - 4.5) Name Value Normal Range LA ESV SP 4CH (A/L) 33 ml - LA ESV SP 2CH (A/L) 39 ml - LA ESV BP (A/L) 38 ml - LA ESV BP (A/L) index 21.5 ml/m2 - LA ESV SP 4CH (MOD) 30 ml - LA ESV SP 2CH (MOD) 37 ml - Name Value Normal Range MV E-wave Vmax 1 m/sec - MV deceleration time 208 msec - MV A-wave Vmax 1.1 m/sec - MV E:A ratio 0.93 ratio - LV septal e' Vmax 0.1 m/sec - LV lateral e' Vmax 0.1 m/sec - LV E:e' septal ratio 10 ratio - LV E:e' lateral ratio 10 ratio - Name Value Normal Range AV Vmax 1.7 m/sec - AV VTI 36.8 cm - AV peak gradient 11.7 mmHg - AV mean gradient 6.5 mmHg - LVOT Vmax 1.4 m/sec - LVOT VTI 29.7 cm - LVOT peak gradient 7.8 mmHg - LVOT mean gradient 3.8 mmHg - TAHMINA Vmax 0.65 m/sec - Name Value Normal Range IVC diameter 1.5 cm - Name Value Normal Range PV Vmax 1.1 m/sec -
[2017-10-31] MEDS: cefTRIAXone VIAL(*) 1,000 MG in NS 0.9% 50 ML* 50 ML IVPB SCH (04:07)
[2017-10-31] MEDS: Heparin VIAL(*) 5000 UNITS/ML VIAL (FIVE THOUSAND) SUBCUT SCH (04:08)
[2017-10-31 04:41] LABS: ABS Basophils 0 10^3/ul (0-0.2); ABS Eosinophils 0.1 10^3/ul (0-0.6); ABS Lymphocytes 2.3 10^3/ul (1.0-4.8); ABS Monocytes 0.6 10^3/ul (0-0.8); ABS Neutrophils 2.2 10^3/ul (1.5-7.7); ABS Nucleated RBC 0 10^3/ul; Eosinophil % 2.2 % (0-6); Hematocrit 32 % (35-47); Hemoglobin 10.6 g/dl (12.0-16.0); Lymphocyte % 43.3 % (25-47); Mean Corpuscular HGB Conc 34 g/dl (31-36); Mean Corpuscular Hemoglobin 28 pg (27-31); Mean Corpuscular Volume 84 fL (80-97); Mean Platelet Volume 9 um3 (7.4-10.4); Nucleated Red Blood Cells % 0; Platelet Count 168 10^3/ul (150-450); Red Blood Count 3.76 10^6/ul (4.0-5.4); Red Cell Distribution Width 14 % (10.5-15); White Blood Count 5.3 10^3/ul (3.5-10.8)
[2017-10-31 04:51] LABS: EGFR Non-African American 103.8 (>60)
[2017-10-31] MEDS: HYDROcodone/ACET. 7.5/325 LIQ* 15 ML UDC PO PRN ×2 (06:40→11:23)
[2017-10-31] MEDS: amLODIPine TAB* 5 MG PO SCH (09:32)
[2017-10-31] MEDS: Montelukast Sodium TAB* 10 MG PO SCH (09:32)
[2017-10-31] MEDS: Docusate CAP* 100 MG PO SCH (09:34)
[2017-10-31 11:14] VITALS: BP 140/77
--- NOTE | 2017-10-31 11:20 | PN ---
Subjective Date of Service: 10/31/17 Interval History: Ms. May states that she continues to feel tired and "worn out" but denies any specific complaint. She is tolerating oral intake well and has had no fever since 10/29/17. Family History: Unchanged from Admission Social History: Unchanged from Admission Past Medical History: Unchanged from Admission Objective Active Medications: Acetaminophen (Tylenol Tab*) 650 mg PO Q6H PRN Acetaminophen/Butalbital/Caffeine (Fioricet Tab*) 1 tab PO Q12H PRN Hydrocodone Bitart/Acetaminophen (Nortab 7.5/325 Liq*) 15 ml PO Q4H PRN Albuterol (Ventolin 2.5 Mg/3 Ml Neb.Maira*) 2.5 mg INH Q2H PRN Amlodipine Besylate (Norvasc Tab*) 5 mg PO DAILY OTTO Docusate Sodium (Colace Cap*) 200 mg PO BID OTTO Famotidine (Pepcid Tab*) 20 mg PO BID PRN Fluoxetine HCl (Prozac Cap*) 60 mg PO DAILY OTTO Heparin Sodium (Porcine) (Heparin Vial(*)) 5,000 units SUBCUT Q8HR OTTO Ceftriaxone Sodium 1,000 mg/ (Sodium Chloride) 50 mls @ 200 mls/hr IVPB Q24H OTTO Melatonin (Melatonin (Nf)) 3 mg PO BEDTIME PRN; Protocol Montelukast Sodium (Singulair Tab*) 10 mg PO DAILY OTTO Ondansetron HCl (Zofran Inj*) 4 mg IV Q6H PRN Vital Signs: Temp Pulse Resp BP Pulse Ox 98.5 F 89 16 140/77 98 10/31/17 11:10 10/31/17 11:10 10/31/17 11:10 10/31/17 11:10 10/31/17 11:10 Oxygen Devices in Use Now: None Appearance: Female sitting up in bed in NAD Eyes: No Scleral Icterus Ears/Nose/Mouth/Throat: Mucous Membranes Moist Neck: Trachea Midline Respiratory: Symmetrical Chest Expansion and Respiratory Effort, Clear to Auscultation Cardiovascular: NL Sounds; No Murmurs; No JVD, No Edema Abdominal: NL Sounds; No Tenderness; No Distention Lymphatic: No Cervical Adenopathy Extremities: No Edema Skin: No Rash or Ulcers Neurological: Alert and Oriented x 3, NL Muscle Strength and Tone Nutrition: Taking PO's Result Diagrams: 10/31/17 04:19 10/31/17 04:19 Assess/Plan/Problems-Billing Assessment: Mr. May is a 57yo female with a PMH significant for HTN and nephrolithiasis who presents with fevers and abdominal pain after being discharged and home for several hours. Patient was previously admitted for nephrolithiasis and pyelonephritis. - Patient Problems (1) Pyelonephritis Comment: - Fevers resolved. No tachycardia, hypotension, WBC count normal. Does not meet SIRS criteria. SOFA score 1 on admission. - With bacteremia with pansensitive E coli. - Switch to cefpodoxime to complete course of treatment. (2) Nephrolithiasis Comment: - Appreciate urology consult. - Patient was obstructed and stented on 10/27. Symptomatically much improved. - This is patient's third episode of symptomatic nephrolithiasis. Patient states that she was previously told that her stones were calcium oxalate. Patient drinks lots of water. Unable to give thiazide or thiazide-like diuretic due to previous hypersensitivity reactions. Would recommend prophylactic treatment pending outpatient urinary chemistries. (3) Pulmonary edema Comment: - Resolving, not hypoxic. - Echo with intact EF and no significant wall motion or valvular abnormalities. ? secondary to IV for pyelonephritis. (4) Anxiety Comment: - Continue Prozac. (5) Asthma Comment: - Asymptomatic, Ventolin PRN. (6) HTN (hypertension) Comment: Normotensive, continue amlodipine. (7) DVT prophylaxis Comment: - SCDs (8) Full code status Comment: Status and Disposition: Patient is admitted inpatient. Discharge to home.
[2017-10-31] MEDS: FLUoxetine CAP* 20 MG PO SCH (11:27)
--- NOTE | 2017-11-01 07:27 | DS ---
CC: Dr. Jamison; Dr. Cunha.* HOSPITAL MEDICINE DISCHARGE SUMMARY: DATE OF ADMISSION: 10/28/17 DATE OF DISCHARGE: 10/31/17 PRIMARY CARE PROVIDER: Dr. Jamison. UROLOGIST: Dr. Cunha. ATTENDING PHYSICIAN: Rosalina Allen MD * (dictation provided by Suzi Titus NP). PRIMARY DIAGNOSES: 1. E. coli bacteremia. 2. Pyelonephritis secondary to nephrolithiasis, status post stenting on . SECONDARY DIAGNOSES: 1. Hypertension. 2. Asthma. 3. Depression. 4. Chronic pain. MEDICATIONS AT THE TIME OF DISCHARGE: 1. Tylenol 650 mg p.o. q. 4 hours p.r.n. 2. Amlodipine 5 mg p.o. daily. 3. Ferrous sulfate 325 mg p.o. every other day. 4. Famotidine 20 mg p.o. b.i.d. p.r.n. 5. Fluoxetine 60 mg p.o. daily. 6. Cefpodoxime 200 mg p.o. q.12 hours. 7. Pyridium 200 mg p.o. q. 6 hours p.r.n. 8. Ondansetron orally dissolving tab 4 mg p.o. q. 6 hours p.r.n. 9. Montelukast 10 mg p.o. daily. 10. Hydrocodone with acetaminophen 7.5/325 one tab p.o. q. 4 hours p.r.n. HOSPITAL COURSE: Ms. May is a 57-year-old female who was originally admitted to our hospital on 10/27/17 with concern for altered mental status, flank pain and fever. Please see the dictated H and P from Mario Adamson MD for complete details, but patient was admitted to our hospital on 10/27/17 for concern of urinary tract infection with nephrolithiasis, and pyelonephritis evidenced by hydronephrosis on CT scan. Patient was taken to the operating room by Dr. Jerome for a left-sided ureteral stent placement. Blood cultures were positive during that hospitalization for E. coli as well as urine culture growing E. coli, all of which were sanchez sensitive. Patient was discharged to home on 10/28/17 after treatment for this. She returned later in the evening with concern for persistent malaise and fever. At that time, she had no leukocytosis and a fever of 100.8. Ms. May was admitted to the hospital out of concern for possible persistent bacteremia. She had repeat blood cultures, which have had no growth for the past two days. She has remained afebrile since 10/29/17. She has been treated with ceftriaxone during the hospitalization, and is now planned to be transitioned over to cefpodoxime. Ms. May is tolerating oral intake well. She is ambulating on the unit independently. She is again afebrile. Her vital signs are otherwise stable. She is medically stable for discharge to home. On arrival, the patient had a chest x-ray that showed concern for mild pulmonary edema. Patient showed a concern for fluid overload on her chest x- ray. She was not hypoxic at all during the hospitalization. She did have a transthoracic echocardiogram that showed her EF was normal, and that she had no significant valvular or wall motion abnormalities. I suspect that this was all secondary to sepsis and bacteremia with IV fluids at the previous admission, and is resolving without treatment. DISPOSITION: Home. DIET: Low salt. ACTIVITY: As tolerated. FOLLOWUP: 1. Please follow up with Dr. Cunha regarding management of multiple episodes of kidney stones. 2. Please follow up with Dr. Jmaison regarding that and other comorbidities. TIME SPENT: Approximately 60 minutes were spent on the discharge of this patient, more than half the time spent with the patient at the bedside reviewing the events leading up to this hospitalization, performing the physical examination, and speaking to her about the discharge plan. SUZI TITUS NP [id number]/[facility] #: [id number] TRINA
== END 2017-10-31 12:25 | disposition home or self-care (01) | DRG 690 ==
LOC: ED 18:49 → MED 19:56 → OBSVTOIN 10-30 07:38
PROVIDERS: ADMIT Hospitalist; ATTEND Internal Medicine
DX: N12 Tubulo-interstitial nephritis, not specified as acute or chronic (principal); J90 Pleural effusion, not elsewhere classified; J81.1 Chronic pulmonary edema; R78.81 Bacteremia; E66.3 Overweight; E87.70 Fluid overload, unspecified; F32.9 Major depressive disorder, single episode, unspecified; I10 Essential (primary) hypertension; K21.9 Gastro-esophageal reflux disease without esophagitis; M79.7 Fibromyalgia; G43.909 Migraine, unspecified, not intractable, without status migrainosus; R31.9 Hematuria, unspecified; N20.0 Calculus of kidney; F41.9 Anxiety disorder, unspecified; B96.20 Unspecified Escherichia coli [E. coli] as the cause of diseases classified elsewhere; G89.29 Other chronic pain; J45.909 Unspecified asthma, uncomplicated; Z87.442 Personal history of urinary calculi; Z88.5 Allergy status to narcotic agent; Z88.2 Allergy status to sulfonamides; Z82.49 Family history of ischemic heart disease and other diseases of the circulatory system; Z83.3 Family history of diabetes mellitus; Z68.29 Body mass index [BMI] 29.0-29.9, adult; Z80.1 Family history of malignant neoplasm of trachea, bronchus and lung; Z82.0 Family history of epilepsy and other diseases of the nervous system; Z84.1 Family history of disorders of kidney and ureter; Z87.891 Personal history of nicotine dependence
CPT/HCPCS: 36415; 71046; 80048; 80053; 82565; 83735; 84520; 85025; 85610; 85730; 87040; 93306; 94640; 94760; 99284; A9270-GY; G0378; J0696; J1644; J2543

== ENCOUNTER 2017-11-09 07:00 | Day surgery (SDC) | payer MEDICARE, OTHER ==
--- NOTE | 2017-11-07 22:23 | HP ---
CC: Dr. Jamison * HISTORY AND PHYSICAL: DATE OF PLANNED ADMISSION AND SURGERY: 11/09/17 HISTORY OF PRESENT ILLNESS: Mrs. May is a 57-year-old white female, who is admitted with suspected left ureteral calculus, status post placement of left ureteral stent for cystoscopy, left ureteroscopy, and left ureteral stent exchange. Mrs. May is a known stone former and she presented to the emergency room on 10/26/17 with symptoms of urosepsis, left pyelonephritis and suspected 7 to 8 mm calculus in the distal left ureter. At that admission, she became hypotensive and was taken urgently to the operating room for placement of left ureteral stent. Only minimal hydronephrosis was noted on the retrograde study.. The patient became hypotensive postoperatively, required aggressive fluid resuscitation, pressors managed in the ICU. She did fine and recovered from her sepsis. Her urine and blood cultures grew sanchez sensitive E. coli. She was discharged home on cephalosporin. She was readmitted because of congestive heart failure most likely secondary to the very active resuscitation fluids that she required. She ultimately did fine and is back to her normal health. A KUB done postoperatively and again on her preoperative visits showed the Lt ureteral stent in good position and 2 calcifications in the distal third of the ureter. Both calcifications are in proximity, but not immediately adjacent to the stent and might represent ureteral calculi or are extra ureteral calcifications. Because of the above possibilities, the patient is taken to the operating room for the above procedure. PAST MEDICAL HISTORY AND SYSTEM REVIEW: The patient has hypertension, maintained on amlodipine 5 mg daily. She is on Prozac 20 mg daily and gabapentin. She has history of asthma and is on inhaler as needed. She is also on omeprazole for GERD. She reports being allergic to SULFA, which gives her some breathing difficulty. She reports also having intolerance to codeine, Demerol, and HCTZ. PHYSICAL EXAMINATION GENERAL: Pleasant white male, who looks healthy. VITAL SIGNS: Blood pressure 140/90, pulse of 80. LUNGS: Clear without any rales, rhonchi, or wheezing. HEART: Regular and rhythmic. No murmurs. ABDOMEN: Soft. No masses. No tenderness and no CVA tenderness. IMPRESSION: 1. Nonobstructing left renal calculi. 2. Recent episode of acute left pyelonephritis and urosepsis and suspected 7 to 8 mm distal left ureteral calculus. PLAN: Is for cystoscopy, left ureteroscopy and if a calculus is noted in the ureter, for laser lithotripsy and left ureteral stent exchange. I discussed above plans in detail with the patient. I also explained to her that it is possible that no calculus will be noted in the ureter. She will require shockwave lithotripsy of the residual left renal calculi at a later date. [id number]/[facility] #: [id number] [facility]
[~2017-11-09 07:00] MED LIST: Buffered Lidocaine 0.9% SYRIN* 5 ML/SYR SYRINGE INTRADERM ONE; DiMENhydriNATE IV* 50 MG/ML VIAL IV PUSH PRN; Famotidine IV* 10 MG/ML 2 ML (20 mg) IV ONE; Morphine INJ* 2 MG/ML 1 ML CARPUJECT IV PRN; Naloxone* 0.4 MG/ML 1 ML VIAL IV PRN; PROCHLORPERAZINE INJ 5 MG/ML 2 ML VIAL IV PRN; Scopolamine 1.5 mg* PATCH TRANSDERM ONE; fentaNYL* 50 MCG/ML 2 ML VIAL (100 MCG VIAL) IV PRN; oxyCODONE/Acetamin 5/325 MG* TAB PO PRN
[2017-11-09] MEDS ORDERED: cefTRIAXone(*) 2 GM ADDV.VIAL IVPB ONE (07:42)
[2017-11-09] MEDS ORDERED: Famotidine IV* 10 MG/ML 2 ML (20 mg) ONE (07:42)
[2017-11-09] MEDS ORDERED: Scopolamine 1.5 mg* PATCH ONE (07:42)
[2017-11-09] MEDS ORDERED: Midazolam* 1 MG/ML 5 ML VIAL (5 MG) ONE (07:52)
[2017-11-09] MEDS ORDERED: fentaNYL* 50 MCG/ML 2 ML VIAL (100 MCG VIAL) ONE (07:52)
[2017-11-09] MEDS ORDERED: Iohexol 180 (CONTRAST) 10 ML SDV IV ONE (08:18)
[2017-11-09] MEDS ORDERED: Lidocaine 2% PF * 5 ML VIAL ONE (09:07)
[2017-11-09] MEDS ORDERED: Ondansetron INJ* 2 MG/ML VIAL ONE (09:07)
[2017-11-09] MEDS ORDERED: Propofol* 10 MG/ML 20 ML BTL IV PUSH ONE (09:07)
[2017-11-09] MEDS ORDERED: Dexamethasone IV* 4 MG/ML 1 ML (4 MG) ONE (09:07)
--- NOTE | 2017-11-09 09:43 | RAD ---
INDICATION: LEFT ureteral stent exchange. COMPARISON: October 26, 2017 CT. TECHNIQUE: 10 seconds fluoroscopy. FINDINGS: Initial LEFT ureteral stent removed. Subsequent retrograde pyelogram documents mild calyceal blunting. New LEFT ureteral stent placed with immediate partial decompression of the collecting system documented. IMPRESSION: Procedural fluoroscopy. CPT II Codes: 6045F
[2017-11-09 10:04] VITALS: BP 118/75
--- NOTE | 2017-11-10 07:24 | OP ---
CC: Dr. Jamison. * DATE OF OPERATION: 11/09/17 - SDS DATE OF : [birth year]. SURGEON: Chalo Jerome MD. ANESTHESIOLOGIST: Jackson Lion MD. ANESTHESIA: General. PRE-OP DIAGNOSIS: Left ureteral calculus. Status post placement left ureteral stent. POST-OP DIAGNOSIS: Left ureteral calculus. Status post placement left ureteral stent. OPERATIVE PROCEDURES: 1. Cystoscopy. 2. Left ureteroscopy and pyeloscopy. 3. Laser lithotripsy of left ureteral calculus. 4. Left retrograde pyelography and left ureteral stent exchange (6-Vietnamese). INDICATION FOR PROCEDURE: Ms. May is a 57-year-old white female who is a stone former and who had urgent placement of a left ureteral stent 2 weeks ago because of an obstructed, infected left kidney, associated with urosepsis and hypotension. She ultimately did fine. Followup KUB showed calcifications along the path of the left ureter adjacent to the stent. The patient is admitted for the above procedure. Pathology at cystoscopy, the bladder mucosa looked normal. There were no suspicious bladder lesions seen. No changes of cystitis noted. The distal limb of the stent was seen from the left ureteral orifice. Upon left ureteroscopy an 8-mm calculus was noted in the proximal left ureter. The calculus had the gross appearance of a calcium oxalate stone. DESCRIPTION OF PROCEDURE: After successful general anesthesia, the patient was placed in the lithotomy position and was prepped and draped for cystoscopy. Cystoscopy was performed. The bladder was carefully infected and the above findings were noted. The left ureteral stent was then removed. A flexible-tip guidewire was then introduced into the left orifice and positioned in the area of the renal pelvis. A 6.5 semirigid ureteroscope was then introduced inside the bladder. A flexible- tip basket was then introduced inside the port of the ureteroscope and the flexible tip was introduced inside the left ureter alongside the guidewire and used as a guide to introduce the ureteroscope inside the ureter with no trauma. The ureteroscope was introduced all the way up into the proximal ureter. The calculus was identified at that level. I suspect that the stone was located in the distal ureter and migrated into the proximal ureter with the introduction of the guidewire. While deploying the basket to engage the stone, the stone migrated inside the renal pelvis. The ureteroscope was then introduced without difficulty inside the renal pelvis. The calculus was identified, was engaged inside the basket and gently pulled all the way down to the distal ureter without causing any trauma to the ureteral wall. The 550 micron laser fiber was then introduced through the other port of the ureteroscope and the stone was broken into multiple fragments and the fragments were extracted and sent for stone analysis. Repeat ureteroscopy all the way up into the level of the ureteropelvic junction showed no significant residual calculi and intact ureteral wall. A retrograde pyelography was then performed. A size 6 Vietnamese stent was then placed with the proximal end coiling in the collecting system and the distal end coiling inside the bladder. There was prompt of drainage of contrast from the kidney and no extravasation. The patient tolerated the procedure well and left the operating room in good condition. The plan is to leave the stent for one week. It will be removed in the office under local anesthesia. [id number]/[facility] #: [id number] [facility]
[2017-11-12] MEDS ORDERED: Scopolamine PATCH Remove* 1 NOTE MISC PATCH OFF ONE (06:00)
== END 2017-11-09 10:20 | disposition home or self-care (01) ==
LOC: OR 07:00
PROVIDERS: ATTEND Urology
DX: N20.1 Calculus of ureter (principal); I10 Essential (primary) hypertension; J45.909 Unspecified asthma, uncomplicated; K21.9 Gastro-esophageal reflux disease without esophagitis
CPT/HCPCS: 74420; 82365; 88300; A9270-GY; C1876; J0696; J1100; J2250; J2405; J2704; J3010

== ENCOUNTER 2017-12-02 04:49 | Emergency (ER) | payer MEDICARE ==
[2017-12-02] MEDS ORDERED: NS 0.9% 1000 ML* 1,000 ML IV ONE (05:06)
[2017-12-02] MEDS ORDERED: Ketorolac INJ* 30 MG/ML 1 ML VIAL IV PUSH ONE (05:06)
[2017-12-02] MEDS ORDERED: Ondansetron INJ* 2 MG/ML VIAL IV ONE (05:06)
[2017-12-02 05:36] LABS: ABS Basophils 0.1 10^3/ul (0-0.2); ABS Eosinophils 0.1 10^3/ul (0-0.6); ABS Lymphocytes 1.2 10^3/ul (1.0-4.8); ABS Monocytes 0.5 10^3/ul (0-0.8); ABS Neutrophils 7.5 10^3/ul (1.5-7.7); ABS Nucleated RBC 0 10^3/ul; Eosinophil % 1.3 % (0-6); Hematocrit 35 % (35-47); Hemoglobin 11.5 g/dl (12.0-16.0); Lymphocyte % 12.3 % (25-47); Mean Corpuscular HGB Conc 33 g/dl (31-36); Mean Corpuscular Hemoglobin 28 pg (27-31); Mean Corpuscular Volume 84 fL (80-97); Mean Platelet Volume 9.2 um3 (7.4-10.4); Nucleated Red Blood Cells % 0.1; Platelet Count 261 10^3/ul (150-450); Red Blood Count 4.19 10^6/ul (4.0-5.4); Red Cell Distribution Width 14 % (10.5-15); White Blood Count 9.4 10^3/ul (3.5-10.8)
[2017-12-02 05:41] LABS: Urine Appearance Clear; Urine Blood Negative (Negative); Urine Color Yellow; Urine Ketones Negative (Negative); Urine Protein Negative (Negative); Urine Specific Gravity 1.008 (1.010-1.030); Urine Urobilinogen Negative (Negative)
[2017-12-02] MEDS ORDERED: Morphine INJ* 4 MG/ML 1 ML CARPUJECT IV ONE (05:53)
[2017-12-02 05:56] LABS: EGFR Non-African American 91.4 (>60)
[2017-12-02] MEDS ORDERED: cefTRIAXone(*) 1 GM in NS 0.9% 50 ML* 50 ML IVPB ONE (06:05)
[2017-12-02] MEDS ORDERED: Magnesium CITRATE* 300 ML BTL PO ONE (06:33)
[2017-12-02] MEDS ORDERED: Sodium Phosphate ADULT ENEMA* 118 ml bottle PR ONE (06:48)
--- NOTE | 2017-12-02 07:08 | ED ---
Gloria Boykin Gabriel, scribed for Aftab Murdock MD on 12/02/17 at 0509 . Back Pain - HPI Summary HPI Summary: This patient is a 57 year old F presenting to [facility] accompanied by her daughter with a chief complaint of bilateral flank pain that began a week ago.The patient rates the pain 7/10 in severity, states it is worse on the right and describes it as radiating into her ABD. Patient reports fever of 102. Pt had a stent removed 10 days ago that was for a 7mm stone. - History of Current Complaint Chief Complaint: EDFlankPain Stated Complaint: FLANK PAIN Time Seen by Provider: 12/02/17 04:56 Hx Obtained From: Patient Onset/Duration: Lasting Weeks, Still Present Onset/Duration: Still Present Timing: Constant Severity Initially: Moderate Severity Currently: Moderate Pain Intensity: 7 Pain Scale Used: 0-10 Numeric Associated Signs And Symptoms: Positive: Fever - Allergies/Home Medications Allergies/Adverse Reactions: Allergies Allergy/AdvReac Type Severity Reaction Status Date / Time codeine Allergy Unknown Verified 12/02/17 04:53 Reaction Details hydrochlorothiazide Allergy Shortness Verified 12/02/17 04:53 of Breath meperidine [From Demerol] Allergy Unknown Verified 12/02/17 04:53 Reaction Details Sulfa (Sulfonamide Allergy Shortness Verified 12/02/17 04:53 Antibiotics) of Breath PMH/Surg Hx/FS Hx/Imm Hx Endocrine/Hematology History: Reports: Hx Anemia Cardiovascular History: Reports: Hx Hypertension Respiratory History: Reports: Hx Asthma, Hx Pulmonary Edema - IN HOSPITAL LAST WEEK GI History: Reports: Hx Gastroesophageal Reflux Disease History: Reports: Hx Kidney Infection, Hx Kidney Stones Comment Only: Other Problems/Disorders - s/p left ureter stent Musculoskeletal History: Reports: Hx Arthritis - KNEES AND HIPS, Hx Fibromyalgia Sensory History: Reports: Hx Contacts or Glasses Denies: Hx Hearing Aid Opthamlomology History: Reports: Hx Contacts or Glasses Neurological History: Reports: Hx Migraine Denies: Hx Dementia, Hx Developmental Delay, Hx Nerve Disease, Hx Seizures, Hx Spinal Cord Injury, Hx Transient Ischemic Attacks (TIA) Psychiatric History: Reports: Hx Anxiety - Surgical History Surgery Procedure, Year, and Place: stent placement, kidney stone removal, c- section x2 Hx Anesthesia Reactions: No Infectious Disease History: No Infectious Disease History: Denies: Traveled Outside the [place] in Last 30 Days - Family History Known Family History: Positive: Renal Disease - KIDNEY STONES - Social History Alcohol Use: None Substance Use Type: Reports: None Smoking Status (MU): Former Smoker Have You Smoked in the Last Year: No Review of Systems Positive: Fever Positive: flank pain All Other Systems Reviewed And Are Negative: Yes Physical Exam - Summary Physical Exam Summary: Appearance: Well appearing, mild distress Skin: light diaphoreisis Head/face: normal Eyes: EOMI, KAROLINE ENT: normal Neck: supple, non-tender Respiratory: CTA, breath sounds present Cardiovascular: tachycardic, pulses symmetrical, good pulses Abdomen: non-tender, soft Bowel Sounds: present Back: right CVA TTP Musculoskeletal: normal, strength/ROM intact Neuro: normal, sensory motor intact, A&Ox3 Triage Information Reviewed: Yes Vital Signs On Initial Exam: Initial Vitals Temp Pulse Resp BP Pulse Ox 97.1 F 126 20 179/95 96 12/02/17 04:50 12/02/17 04:50 12/02/17 04:50 12/02/17 04:50 12/02/17 04:50 Vital Signs Reviewed: Yes Diagnostics - Vital Signs Vital Signs Temp Pulse Resp BP Pulse Ox 12/02/17 04:50 97.1 F 126 20 179/95 96 - Laboratory Lab Results: Lab Results 12/02/17 12/02/17 12/02/17 Range/Units 05:00 05:00 05:00 WBC 9.4 (3.5-10.8) 10^3/ul RBC 4.19 (4.0-5.4) 10^6/ul Hgb 11.5 L (12.0-16.0) g/dl Hct 35 (35-47) % MCV 84 (80-97) fL MCH 28 (27-31) pg MCHC 33 (31-36) g/dl RDW 14 (10.5-15) % Plt Count 261 (150-450) 10^3/ul MPV 9.2 (7.4-10.4) um3 Neut % (Auto) 80.1 (38-83) % Lymph % (Auto) 12.3 L (25-47) % [place] % (Auto) 5.7 (0-7) % Eos % (Auto) 1.3 (0-6) % Baso % (Auto) 0.6 (0-2) % Absolute Neuts (auto) 7.5 (1.5-7.7) 10^3/ul Absolute Lymphs (auto) 1.2 (1.0-4.8) 10^3/ul Absolute Monos (auto) 0.5 (0-0.8) 10^3/ul Absolute Eos (auto) 0.1 (0-0.6) 10^3/ul Absolute Basos (auto) 0.1 (0-0.2) 10^3/ul Absolute Nucleated RBC 0 10^3/ul Nucleated RBC % 0.1 Sodium 136 L (139-145) mmol/L Potassium 3.8 (3.5-5.0) mmol/L Chloride 106 (101-111) mmol/L Carbon Dioxide 21 L (22-32) mmol/L Anion Gap 9 (2-11) mmol/L BUN 9 (6-24) mg/dL Creatinine 0.67 (0.51-0.95) mg/dL Est GFR ( Amer) 117.5 (>60) Est GFR (Non-Af Amer) 91.4 (>60) BUN/Creatinine Ratio 13.4 (8-20) Glucose 129 H (70-100) mg/dL Lactic Acid 1.8 (0.5-2.0) mmol/L Calcium 9.6 (8.6-10.3) mg/dL Total Bilirubin 0.40 (0.2-1.0) mg/dL AST 18 (13-39) U/L ALT 14 (7-52) U/L Alkaline Phosphatase 68 (34-104) U/L C-Reactive Protein 56.31 H (< 5.00) mg/L Total Protein 7.7 (6.4-8.9) g/dL Albumin 4.2 (3.2-5.2) g/dL Globulin 3.5 (2-4) g/dL Albumin/Globulin Ratio 1.2 (1-3) Lipase 19 (11.0-82.0) U/L Urine Color Urine Appearance Urine pH (5-9) Ur Specific [place] (1.010-1.030) Urine Protein (Negative) Urine Ketones (Negative) Urine Blood (Negative) Urine Nitrate (Negative) Urine Bilirubin (Negative) Urine Urobilinogen (Negative) Ur Leukocyte Esterase (Negative) Urine WBC (Auto) (Absent) Urine RBC (Auto) (Absent) Urine Bacteria (Absent) Urine Glucose (Negative) 12/02/17 Range/Units 05:00 WBC (3.5-10.8) 10^3/ul RBC (4.0-5.4) 10^6/ul Hgb (12.0-16.0) g/dl Hct (35-47) % MCV (80-97) fL MCH (27-31) pg MCHC (31-36) g/dl RDW (10.5-15) % Plt Count (150-450) 10^3/ul MPV (7.4-10.4) um3 Neut % (Auto) (38-83) % Lymph % (Auto) (25-47) % [place] % (Auto) (0-7) % Eos % (Auto) (0-6) % Baso % (Auto) (0-2) % Absolute Neuts (auto) (1.5-7.7) 10^3/ul Absolute Lymphs (auto) (1.0-4.8) 10^3/ul Absolute Monos (auto) (0-0.8) 10^3/ul Absolute Eos (auto) (0-0.6) 10^3/ul Absolute Basos (auto) (0-0.2) 10^3/ul Absolute Nucleated RBC 10^3/ul Nucleated RBC % Sodium (139-145) mmol/L Potassium (3.5-5.0) mmol/L Chloride (101-111) mmol/L Carbon Dioxide (22-32) mmol/L Anion Gap (2-11) mmol/L BUN (6-24) mg/dL Creatinine (0.51-0.95) mg/dL Est GFR ( Amer) (>60) Est GFR (Non-Af Amer) (>60) BUN/Creatinine Ratio (8-20) Glucose (70-100) mg/dL Lactic Acid (0.5-2.0) mmol/L Calcium (8.6-10.3) mg/dL Total Bilirubin (0.2-1.0) mg/dL AST (13-39) U/L ALT (7-52) U/L Alkaline Phosphatase (34-104) U/L C-Reactive Protein (< 5.00) mg/L Total Protein (6.4-8.9) g/dL Albumin (3.2-5.2) g/dL Globulin (2-4) g/dL Albumin/Globulin Ratio (1-3) Lipase (11.0-82.0) U/L Urine Color Yellow Urine Appearance Clear Urine pH 7.0 (5-9) Ur Specific [place] 1.008 L (1.010-1.030) Urine Protein Negative (Negative) Urine Ketones Negative (Negative) Urine Blood Negative (Negative) Urine Nitrate Negative (Negative) Urine Bilirubin Negative (Negative) Urine Urobilinogen Negative (Negative) Ur Leukocyte Esterase 1+ A (Negative) Urine WBC (Auto) 3+(>20/hpf) A (Absent) Urine RBC (Auto) Trace(0-2/hpf) (Absent) Urine Bacteria 1+ A (Absent) Urine Glucose Negative (Negative) Result Diagrams: 12/02/17 05:00 12/02/17 05:00 Lab Statement: Any lab studies that have been ordered have been reviewed, and results considered in the medical decision making process. - CT CT ABD/PElvis CT Interpretation Completed By: Radiologist - multiple renal stones. Minimal right hydronephrosis with periureteral inflammation, possibly related to a recent stent or a recently passed stone. Large amount of diffuse stone. ED physician has reviewed this report. Re-Evaluation - Re-Evaluation First Eval Re-Evaluation Time: 06:39 Change: Unchanged Comment: I discussed test results with the patient. Back Pain Course/Dx - Course Course Of Treatment: pt with abrupt onset of R > L flank pain, felt in abd. Recent stent after lithotripsy. Diaphoretic but afebrile. States was febrile just [employer]. Perhaps mild findings of UTI (more likely due to post stent removal WBC). Rocephin IV here. Hydrated and pain tx. CT is most significant for large amounts of stool. Discussed urine, CT findings etc with urology. They will f/u closely. Tx also for constipation. Home care, increased doses of miralax discussed. - Diagnoses Differential Diagnosis/HQI/PQRI: Positive: Renal Colic, Other - GB dz, appendicitis, SBO, constipation (opiate induced) Provider Diagnoses: UTI (urinary tract infection), Right sided abdominal pain, Constipation - Provider Notifications Discussed Care Of Patient With: Yan Guerline Time Discussed With Above Provider: 06:34 Instructed by Provider To: Other - He has agreed to follow up with her as an outpatient. Discharge - Sign-Out/Discharge Documenting (check all that apply): Discharge - Discharge Plan Condition: Good Disposition: HOME Patient Education Materials: Constipation (ED), Urinary Tract Infection in Women (ED) Referrals: Juan Luis Jamison MD [Primary Care Provider] - Chalo Jerome MD [Medical Doctor] - Additional Instructions: Drink plenty of fluids. Miralax take 3-4 doses per day until stools are loose. Enema for home use provided. Massage on the abdomen, stay active. Ibuprofen/benadryl may help with cramping Return with measured fever over 100.5, vomiting, worse or other concerns. - Billing Disposition and Condition Condition: GOOD Disposition: HOME The documentation as recorded by the Gloria melchor Gabriel accurately reflects the service I personally performed and the decisions made by me, Aftab Murdock MD.
[2017-12-02 07:35] VITALS: BP 127/70
--- NOTE | 2017-12-02 07:50 | RAD ---
CLINICAL HISTORY: Right flank pain, recent stent removal COMPARISON: October 26, 2017 TECHNIQUE: Multiple contiguous axial CT scans were obtained of the abdomen and pelvis, without intravenous contrast enhancement. Coronal and sagittal multiplanar reformations are submitted for review. Oral contrast was not administered. FINDINGS: The study is limited by noncontrast. LUNG BASES: The lung bases are clear. LIVER: The liver measures 17.4 cm in long axis. There are no focal hepatic parenchymal masses. BILE DUCTS: There is no intrahepatic or extrahepatic biliary dilatation. GALLBLADDER: The gallbladder is normal, without pericholecystic inflammatory change. PANCREAS: There is fatty atrophy of the pancreas. SPLEEN: Normal in size and appearance. UPPER GI TRACT: Evaluation of the gastrointestinal tract is limited by incomplete gastric distention. The upper GI tract is unremarkable. SMALL BOWEL AND MESENTERY: The small bowel is normal in contour, course, and caliber. There is no obstruction or dilatation. COLON: The colon is normal in contour, course, caliber. There is no pericolonic inflammatory change. There is a tubular, vermiform, hollow viscus that is blind ending, and originates from the cecum, consistent with a normal appendix. There is no periappendiceal inflammatory change. This is best seen on axial images 97 through 114. ADRENALS: Normal bilaterally. KIDNEYS: Again noted are multiple bilateral renal calyceal stones. The largest is in the lower pole of the right kidney measuring approximately 0.7 cm. There is no appreciable ureteral stone. There is minimal hydroureter on the right with mild stranding of the periureteral fat.. BLADDER: The bladder is incompletely distended but is grossly normal. PELVIC ORGANS: The uterus and adnexa are grossly normal for technique. AORTA: There is calcific atherosclerotic disease of the abdominal aorta and its branches, without aneurysmal dilatation IVC: Unremarkable LYMPH NODES: There is a centimeter short axis portacaval and periceliac lymph nodes. There is no lymphadenopathy by size criteria ABDOMINAL WALL: There is no evidence for abdominal wall hernia. BONES AND SOFT TISSUES: There are mild diffuse degenerative changes. OTHER: None IMPRESSION: BILATERALLY NEPHROLITHIASIS. THERE IS MINIMAL RIGHT HYDROURETER WITH MILD PERIURETERAL INFLAMMATORY CHANGE. THERE IS NO APPRECIABLE URETERAL STONE.
--- NOTE | 2017-12-04 07:36 | ED ---
Progress - Progress Note Progress Note: Patient's urine culture reveals 50-75,000 Escherichia coli. Patient was seen and diagnosed with constipation and clinically with UTI although no antibiotics were initiated. Final culture pending Re-Evaluation - Re-Evaluation First Eval Re-Evaluation Time: 06:39 Change: Unchanged Comment: I discussed test results with the patient. Course/Dx - Course Course Of Treatment: pt with abrupt onset of R > L flank pain, felt in abd. Recent stent after lithotripsy. Diaphoretic but afebrile. States was febrile just [employer]. Perhaps mild findings of UTI (more likely due to post stent removal WBC). Rocephin IV here. Hydrated and pain tx. CT is most significant for large amounts of stool. Discussed urine, CT findings etc with urology. They will f/u closely. Tx also for constipation. Home care, increased doses of miralax discussed. - Diagnoses Provider Diagnoses: UTI (urinary tract infection), Right sided abdominal pain, Constipation - Provider Notifications Time Discussed With Above Provider: 06:34 Instructed by Provider To: Other - He has agreed to follow up with her as an outpatient. Discharge - Sign-Out/Discharge Documenting (check all that apply): Post-Discharge Follow Up - Discharge Plan Condition: Good Disposition: HOME Patient Education Materials: Constipation (ED), Urinary Tract Infection in Women (ED) Referrals: Juan Luis Jamison MD [Primary Care Provider] - Chalo Jerome MD [Medical Doctor] - Additional Instructions: Drink plenty of fluids. Miralax take 3-4 doses per day until stools are loose. Enema for home use provided. Massage on the abdomen, stay active. Ibuprofen/benadryl may help with cramping Return with measured fever over 100.5, vomiting, worse or other concerns. - Billing Disposition and Condition Condition: GOOD Disposition: HOME
--- NOTE | 2017-12-06 17:40 | PN ---
Progress Note - Progress Note Date of Service: 12/04/17 Note: Pt. seen in ER 12/02 and 12/04 for flank pain. Preliminary blood culture today is growing gram + coccobacilli. WBC was normal and she was afebrile in the ER. Attmepted to call pt today at 1735 and voicemail was left to return call.
== END 2017-12-02 07:34 | disposition home or self-care (01) ==
LOC: ED 04:49
DX: N13.6 Pyonephrosis (principal); N39.0 Urinary tract infection, site not specified; B96.20 Unspecified Escherichia coli [E. coli] as the cause of diseases classified elsewhere; R10.9 Unspecified abdominal pain; K59.00 Constipation, unspecified; I10 Essential (primary) hypertension; K21.9 Gastro-esophageal reflux disease without esophagitis; Z87.891 Personal history of nicotine dependence; N13.30 Unspecified hydronephrosis
CPT/HCPCS: 36415; 74176; 80053; 81003; 81015; 83605; 83690; 85025; 86140; 87040; 87077; 87086; 87150; 87186; 96360; 96374; 96375; 99283; A9270-GY; J0696; J1885; J2270; J2405

== ENCOUNTER 2017-12-28 11:54 | Observation (INO) | payer MEDICARE ==
[2017-12-28 12:40] LABS: ABS Basophils 0 10^3/ul (0-0.2); ABS Eosinophils 0.1 10^3/ul (0-0.6); ABS Lymphocytes 1.1 10^3/ul (1.0-4.8); ABS Monocytes 0.4 10^3/ul (0-0.8); ABS Nucleated RBC 0 10^3/ul; Eosinophil % 0.9 % (0-6); Hematocrit 33 % (35-47); Lymphocyte % 16.3 % (25-47); Mean Corpuscular HGB Conc 33 g/dl (31-36); Mean Corpuscular Hemoglobin 27 pg (27-31); Mean Corpuscular Volume 83 fL (80-97); Mean Platelet Volume 9.2 um3 (7.4-10.4); Nucleated Red Blood Cells % 0; Platelet Count 164 10^3/ul (150-450); Red Blood Count 4.01 10^6/ul (4.0-5.4); Red Cell Distribution Width 15 % (10.5-15); White Blood Count 6.7 10^3/ul (3.5-10.8)
[2017-12-28 12:45] LABS: INR 0.97 (0.77-1.02)
[2017-12-28 12:59] LABS: EGFR Non-African American 94.6 (>60)
--- NOTE | 2017-12-28 13:28 | RAD ---
CLINICAL HISTORY: Bilateral flank pain in a woman with a known history of renal stones COMPARISON: Most recent comparison CT examination is dated December 02, 2017 TECHNIQUE: Noncontrast CT examination of the abdomen and pelvis from the lung bases through the initial tuberosities. FINDINGS: Unless otherwise specified comparisons below reference the December [address] of the abdomen and pelvis. VISUALIZED LUNG BASES: The visualized lung bases are grossly clear. There is no pleural effusion. ABDOMEN AND PELVIS: Evaluation of the solid organs and vasculature is limited without intravenous contrast. The liver, spleen, pancreas and adrenal glands are grossly normal in appearance. The gallbladder is normal. There are multiple renal calculi in the bilateral collecting system. The largest in the right measures 5 mm in greatest cephalocaudal dimension (coronal image 48). The largest in the left is a 4 mm calcification at the lower pole. At the proximal right ureter there is a calcification the lumen measuring 5 mm in greatest dimension (axial image 73 and coronal image 51). There are no definite renal calculi in the left ureter. Evaluation of the urinary bladder is limited due to decompression but there are no definite stones in the lumen. Evaluation of the gastrointestinal tract is limited without oral contrast. The small and large bowel are not distended.The patient's normal appendix is identified in the right lower quadrant measuring 5 mm in diameter (axial image 100). There is no gross retroperitoneal or mesenteric lymphadenopathy. The pelvic viscera is normal in appearance. The coarsely calcified abdominal aorta and iliac arteries are normal in course and diameter. Degenerative changes include multilevel loss of intervertebral disc height involving the lower thoracic and lumbar spine. Again seen is grade 1 anterolisthesis of L4 over L5 unchanged from the prior CT examination. IMPRESSION: 1. Interval appearance of a 5 mm renal calcification in the proximal right ureter, not present on the most recent December 02, 2017 CT examination. 2. Additional nonobstructing renal calculi are seen in the bilateral kidneys. 3. Additional chronic and degenerative changes described in the body the report unlikely to be related to the patient's current clinical presentation..
[2017-12-28] MEDS ORDERED: cefTRIAXone(*) 2 GM in NS 0.9% 100 ML* 100 ML IVPB ONE (13:37)
[2017-12-28] MEDS ORDERED: NS 0.9% 1000 ML* 1,000 ML IV ONE (13:37)
[2017-12-28] MEDS ORDERED: Buffered Lidocaine 0.9% SYRIN* 5 ML/SYR SYRINGE INTRADERM ONE (13:55)
[2017-12-28] MEDS ORDERED: Naloxone* 0.4 MG/ML 1 ML VIAL IV PRN (13:56)
[2017-12-28] MEDS ORDERED: PROCHLORPERAZINE INJ 5 MG/ML 2 ML VIAL IV PRN (13:56)
[2017-12-28] MEDS ORDERED: oxyCODONE/Acetamin 5/325 MG* TAB PO PRN (13:56)
[2017-12-28] MEDS ORDERED: DiMENhydriNATE IV* 50 MG/ML VIAL IV PUSH PRN (13:56)
[2017-12-28] MEDS ORDERED: Morphine INJ* 2 MG/ML 1 ML CARPUJECT IV PRN (13:56)
[2017-12-28] MEDS ORDERED: Scopolamine 1.5 mg* PATCH TRANSDERM PRN (13:56)
[2017-12-28] MEDS ORDERED: fentaNYL* 50 MCG/ML 2 ML VIAL (100 MCG VIAL) IV PRN (13:56)
[2017-12-28 14:11] LABS: Urine Appearance Clear; Urine Blood 2+ (Negative); Urine Color Yellow; Urine Ketones Negative (Negative); Urine Protein Negative (Negative); Urine Specific Gravity 1.006 (1.010-1.030); Urine Urobilinogen Negative (Negative)
[2017-12-28] MEDS ORDERED: Iohexol 180 (CONTRAST) 10 ML SDV IV ONE (15:27)
[2017-12-28] MEDS ORDERED: Morphine VIAL* 4 MG/ML VIAL (1 ml vial) IV ONE (15:30)
[2017-12-28] MEDS ORDERED: Midazolam* 1 MG/ML 5 ML VIAL (5 MG) ONE (16:41)
[2017-12-28] MEDS ORDERED: fentaNYL* 50 MCG/ML 2 ML VIAL (100 MCG VIAL) ONE (16:41)
[2017-12-28] MEDS ORDERED: Cyclobenzaprine TAB* 10 MG PO PRN (16:51)
[2017-12-28] MEDS ORDERED: Famotidine TAB* 20 MG PO PRN (16:51)
[2017-12-28] MEDS ORDERED: DiMENhydriNATE IV* 50 MG/ML VIAL ONE (16:52)
[2017-12-28] MEDS ORDERED: Ketorolac INJ* 30 MG/ML 1 ML VIAL ONE (16:52)
[2017-12-28] MEDS ORDERED: Lidocaine 2% PF * 5 ML VIAL ONE (16:52)
[2017-12-28] MEDS ORDERED: Propofol* 10 MG/ML 20 ML BTL IV PUSH ONE (16:52)
[2017-12-28] MEDS ORDERED: Dexamethasone IV* 4 MG/ML 1 ML (4 MG) ONE (16:52)
--- NOTE | 2017-12-28 18:45 | RAD ---
INDICATION: RIGHT renal calculus. Laser lithotripsy and ureteral stent placement. COMPARISON: December 28, 2017 CT. TECHNIQUE: 10 seconds fluoroscopy. FINDINGS: RIGHT retrograde pyelogram demonstrates only mild caliectasis. RIGHT ureteral stent placed. IMPRESSION: Procedural fluoroscopy. CPT II Codes: G9500
--- NOTE | 2017-12-28 19:45 | ED ---
Emilie Boykin Thomas, scribed for Dio Owens MD on 12/28/17 at 1335 . Abdominal Pain/Female - HPI Summary HPI Summary: The patient is a 57 year old female complaining of bilateral flank pain that began a couple days ago. She recently had a kidney stone. She is referred to the ED by Dr. Jerome. - History of Current Complaint Chief Complaint: EDFlankPain Stated Complaint: FLANK PAIN Time Seen by Provider: 12/28/17 12:11 Hx Obtained From: Patient Onset/Duration: Lasting Days - 2, Still Present Timing: Constant Pain Intensity: 7 Pain Scale Used: 0-10 Numeric Location: Flank - bilateral Aggravating Factor(s): Nothing Alleviating Factor(s): Nothing Associated Signs and Symptoms: Negative: Fever Allergies/Adverse Reactions: Allergies Allergy/AdvReac Type Severity Reaction Status Date / Time codeine Allergy Unknown Verified 12/28/17 12:04 Reaction Details hydrochlorothiazide Allergy Shortness Verified 12/28/17 12:04 of Breath meperidine [From Demerol] Allergy Unknown Verified 12/28/17 12:04 Reaction Details Sulfa (Sulfonamide Allergy Shortness Verified 12/28/17 12:04 Antibiotics) of Breath Home Medications: Home Medications Albuterol inh POWDER (NF) [Proair Respiclick] 2 puff INH Q4HR PRN 12/28/17 [ History Confirmed 12/28/17] Cholecalciferol TAB* [Vitamin D TAB*] 2,000 units PO DAILY 12/28/17 [History Confirmed 12/28/17] Diclofenac Sodium EC TAB* [Voltaren EC TAB*] 75 mg PO BID WITH MEALS PRN [History Confirmed 12/28/17] Fexofenadine (NF) [Cristal 180 (NF)] 180 mg PO DAILY PRN 12/28/17 [History Confirmed 12/28/17] Fluticasone HFA 110 mcg(NF) [Flovent HFA 110 mcg(NF)] 1 puff INH BID PRN [History Confirmed 12/28/17] Gabapentin CAP(*) [Neurontin 100 mg CAP(*)] 100 - 300 mg PO BEDTIME PRN [History Confirmed 12/28/17] LORazepam TAB(*) [Ativan 0.5 MG TAB (*)] 0.5 mg PO Q4H PRN 12/28/17 [History Confirmed 12/28/17] Magnesium Oxide TAB* [MagOx 400 TAB*] 400 mg PO DAILY 12/28/17 [History Confirmed 12/28/17] [place]-3 Fatty Acids/Fish Oil [[place]-3 1,000 mg Softgel] 1 cap PO DAILY 12/28/17 [History Confirmed 12/28/17] Omeprazole CAP* [Prilosec CAP* 20 MG] 20 mg PO DAILY PRN 12/28/17 [History Confirmed 12/28/17] PMH/Surg Hx/FS Hx/Imm Hx Endocrine/Hematology History: Reports: Hx Anemia Cardiovascular History: Reports: Hx Hypertension Respiratory History: Reports: Hx Asthma, Hx Pulmonary Edema - IN HOSPITAL LAST WEEK GI History: Reports: Hx Gastroesophageal Reflux Disease History: Reports: Hx Kidney Infection, Hx Kidney Stones Comment Only: Other Problems/Disorders - s/p left ureter stent Musculoskeletal History: Reports: Hx Arthritis - KNEES AND HIPS, Hx Fibromyalgia Sensory History: Reports: Hx Contacts or Glasses Denies: Hx Hearing Aid Opthamlomology History: Reports: Hx Contacts or Glasses Neurological History: Reports: Hx Migraine Denies: Hx Dementia, Hx Developmental Delay, Hx Nerve Disease, Hx Seizures, Hx Spinal Cord Injury, Hx Transient Ischemic Attacks (TIA) Psychiatric History: Reports: Hx Anxiety - Surgical History Surgery Procedure, Year, and Place: stent placement, kidney stone removal, c- section x2 Hx Anesthesia Reactions: No Infectious Disease History: No Infectious Disease History: Denies: Traveled Outside the [place] in Last 30 Days - Family History Known Family History: Positive: Renal Disease - KIDNEY STONES - Social History Alcohol Use: None Substance Use Type: Reports: None Smoking Status (MU): Former Smoker Have You Smoked in the Last Year: No Review of Systems Negative: Fever Positive: flank pain - bilateral All Other Systems Reviewed And Are Negative: Yes Physical Exam - Summary Physical Exam Summary: Appearance: The patient is well-nourished in no acute distress and in no acute pain. She is non-toxic in apperance. Skin: The skin is warm and dry and skin color reflects adequate perfusion. HEENT: The head is normocephalic and atraumatic. The pupils are equal and reactive. The conjunctivae are clear and without drainage. Nares are patent and without drainage. Mouth reveals moist mucous membranes and the throat is without erythema and exudate. The external ears are intact. The ear canals are patent and without drainage. The tympanic membranes are intact. Neck: the neck is supple with full range of motion and non-tender. There are no carotid bruits. There is no neck vein distension. Respiratory: Chest is non-tender. Lungs are clear to auscultation and breath sounds are symmetrical and equal. Cardiovascular: Heart is regular rate and rhythm. There is no murmur or rub auscultated. There is no peripheral edema and pulses are symmetrical and equal. Abdomen: The abdomen is soft and non-tender. There are normal bowel sounds heard in all four quadrants and there is no organomegaly palpated. Back: There is bilateral CVA tenderness. Musculoskeletal: Extremities are non-tender with full range of motion. There is good capillary refill. There is no peripheral edema or calf tenderness elicited. Neurological: Patient is alert and oriented to person, place and time. The patient has symmetrical motor strength in all four extremities. Cranial nerves are grossly intact. Deep tendon reflexes are symmetrical and equal in all four extremities. Psychiatric: The patient has an appropriate affect and does not exhibit any anxiety or depression. Triage Information Reviewed: Yes Vital Signs On Initial Exam: Initial Vitals Temp Pulse Resp BP Pulse Ox 98.1 F 94 17 147/84 96 12/28/17 12:01 12/28/17 12:01 12/28/17 12:01 12/28/17 12:01 12/28/17 12:01 Vital Signs Reviewed: Yes Diagnostics - Vital Signs Vital Signs Temp Pulse Resp BP Pulse Ox 12/28/17 12:01 98.1 F 94 17 147/84 96 - Laboratory Lab Results: Lab Results 12/28/17 12/28/17 12/28/17 Range/Units 12:31 12:31 12:31 WBC 6.7 (3.5-10.8) 10^3/ul RBC 4.01 (4.0-5.4) 10^6/ul Hgb 11.0 L (12.0-16.0) g/dl Hct 33 L (35-47) % MCV 83 (80-97) fL MCH 27 (27-31) pg MCHC 33 (31-36) g/dl RDW 15 (10.5-15) % Plt Count 164 (150-450) 10^3/ul MPV 9.2 (7.4-10.4) um3 Neut % (Auto) 75.4 (38-83) % Lymph % (Auto) 16.3 L (25-47) % Kleberg % (Auto) 6.7 (0-7) % Eos % (Auto) 0.9 (0-6) % Baso % (Auto) 0.7 (0-2) % Absolute Neuts (auto) 5.0 (1.5-7.7) 10^3/ul Absolute Lymphs (auto) 1.1 (1.0-4.8) 10^3/ul Absolute Monos (auto) 0.4 (0-0.8) 10^3/ul Absolute Eos (auto) 0.1 (0-0.6) 10^3/ul Absolute Basos (auto) 0 (0-0.2) 10^3/ul Absolute Nucleated RBC 0 10^3/ul Nucleated RBC % 0 INR (Anticoag Therapy) 0.97 (0.77-1.02) Sodium 134 L (139-145) mmol/L Potassium 3.8 (3.5-5.0) mmol/L Chloride 105 (101-111) mmol/L Carbon Dioxide 19 L (22-32) mmol/L Anion Gap 10 (2-11) mmol/L BUN 12 (6-24) mg/dL Creatinine 0.65 (0.51-0.95) mg/dL Est GFR ( Amer) 121.7 (>60) Est GFR (Non-Af Amer) 94.6 (>60) BUN/Creatinine Ratio 18.5 (8-20) Glucose 121 H (70-100) mg/dL Lactic Acid (0.5-2.0) mmol/L Calcium 9.5 (8.6-10.3) mg/dL Total Bilirubin 0.50 (0.2-1.0) mg/dL AST 19 (13-39) U/L ALT 14 (7-52) U/L Alkaline Phosphatase 63 (34-104) U/L C-Reactive Protein 93.91 H (< 5.00) mg/L Total Protein 7.6 (6.4-8.9) g/dL Albumin 4.3 (3.2-5.2) g/dL Globulin 3.3 (2-4) g/dL Albumin/Globulin Ratio 1.3 (1-3) 12/28/17 Range/Units 12:31 WBC (3.5-10.8) 10^3/ul RBC (4.0-5.4) 10^6/ul Hgb (12.0-16.0) g/dl Hct (35-47) % MCV (80-97) fL MCH (27-31) pg MCHC (31-36) g/dl RDW (10.5-15) % Plt Count (150-450) 10^3/ul MPV (7.4-10.4) um3 Neut % (Auto) (38-83) % Lymph % (Auto) (25-47) % Kleberg % (Auto) (0-7) % Eos % (Auto) (0-6) % Baso % (Auto) (0-2) % Absolute Neuts (auto) (1.5-7.7) 10^3/ul Absolute Lymphs (auto) (1.0-4.8) 10^3/ul Absolute Monos (auto) (0-0.8) 10^3/ul Absolute Eos (auto) (0-0.6) 10^3/ul Absolute Basos (auto) (0-0.2) 10^3/ul Absolute Nucleated RBC 10^3/ul Nucleated RBC % INR (Anticoag Therapy) (0.77-1.02) Sodium (139-145) mmol/L Potassium (3.5-5.0) mmol/L Chloride (101-111) mmol/L Carbon Dioxide (22-32) mmol/L Anion Gap (2-11) mmol/L BUN (6-24) mg/dL Creatinine (0.51-0.95) mg/dL Est GFR ( Amer) (>60) Est GFR (Non-Af Amer) (>60) BUN/Creatinine Ratio (8-20) Glucose (70-100) mg/dL Lactic Acid 0.6 (0.5-2.0) mmol/L Calcium (8.6-10.3) mg/dL Total Bilirubin (0.2-1.0) mg/dL AST (13-39) U/L ALT (7-52) U/L Alkaline Phosphatase (34-104) U/L C-Reactive Protein (< 5.00) mg/L Total Protein (6.4-8.9) g/dL Albumin (3.2-5.2) g/dL Globulin (2-4) g/dL Albumin/Globulin Ratio (1-3) Result Diagrams: 12/28/17 12:31 12/28/17 12:31 Lab Statement: Any lab studies that have been ordered have been reviewed, and results considered in the medical decision making process. - CT CT Abdomen/Pelvis CT Interpretation: Positive (See Comments) - IMPRESSION: 1. Interval appearance of a 5 mm renal calcification in the proximal right ureter, not present on the most recent December 02, 2017 CT examination. 2. Additional nonobstructing renal calculi are seen in the bilateral kidneys. 3. Additional chronic and degenerative changes described in the body the report unlikely to be related to the patient's current clinical presentation.. Dr. Owesn has reviewed this report. CT Interpretation Completed By: Radiologist Abdominal Pain Fem Course/Dx - Course Course Of Treatment: Ms. May has a history of obsructing kidney stones. In November she had a large stone and was stented. She grew out e.coli in her urine that was sensitive to everything but tetracycline at that time and had one blood culture that was positive for gram pos cocci. In October she was positive for e.coli in the blood. She went to Dr. Jerome's office today secondary to bilateral flank pain. She was found to be febrile, tachycardic and with bilateral CVAT. Dr. Jerome sent her over here to R/O obstructing stone. She did not meet septic criteria on arrival here. She did have an obstructing stone and she was given fluids, antibiotics and Dr. Jerome is taking her to the OR. - Diagnoses Provider Diagnoses: Urinary tract obstruction due to kidney stone - Provider Notifications Discussed Care Of Patient With: Chalo Jerome Time Discussed With Above Provider: 13:40 Instructed by Provider To: Other - Dr. Jerome, urology, will take the patient to the operating room. Dr. Mcmanus will admit the patient. Discharge - Sign-Out/Discharge Documenting (check all that apply): Discharge/Admit/Transfer - Patient is admitted. - Discharge Plan Condition: Fair Disposition: ADMITTED TO [facility] Referrals: Juan Luis Jamison MD [Primary Care Provider] - - Billing Disposition and Condition Condition: FAIR Disposition: [facility] [place] The documentation as recorded by the Emilie melchor Thomas accurately reflects the service I personally performed and the decisions made by me, Dio Owens MD.
[2017-12-28] MEDS ORDERED: Montelukast Sodium TAB* 10 MG PO SCH (21:00)
[2017-12-28] MEDS ORDERED: amLODIPine TAB* 5 MG PO SCH (21:00)
[2017-12-28] MEDS ORDERED: Heparin VIAL(*) 5000 UNITS/ML VIAL (FIVE THOUSAND) SUBCUT SCH (22:00)
[2017-12-28] MEDS: oxyCODONE/Acetamin 5/325 MG* TAB PO PRN (23:19)
--- NOTE | 2017-12-29 02:09 | HP ---
CC: Dr. Juan Luis Jamison * HISTORY AND PHYSICAL: DATE OF ADMISSION: 12/28/17 PRIMARY CARE PROVIDER: Dr. Juan Luis Jamison ATTENDING PHYSICIAN: Jose Francisco Mcmanus MD * (dictated by Merlene Jama NP) CHIEF COMPLAINT: Bilateral flank pain. HISTORY OF PRESENT ILLNESS: Ms. May is a 57-year-old female with past medical history significant for hypertension, asthma, depression, renal calculi , anemia, GERD, migraines, and anxiety who states about a few days ago, she developed bilateral flank pain. She reports having fevers up to 101.8 and 102 over the last 2 days. She denies any chills. She denies chest pain, shortness of breath, diarrhea, vomiting. She reports nausea, dysuria, urinary urgency. She reports her appetite is okay. She denies any lightheadedness, dizziness. Due to her previous history with urosepsis secondary to E. coli bacteremia in the setting of a kidney stone, she presented to the emergency room for further evaluation of her symptoms. While in the emergency room, the patient was found to be afebrile. She has no leukocytosis. She had no signs of sepsis. She had a urinalysis showing 2+ blood, leukocyte esterases and wbc's 2+. She had an abdomen and pelvis CT showing a 5 mm renal calculi. She received normal saline, ceftriaxone. Dr. Jerome was consulted who recommended that the patient be admitted with plan to go to the operating room later today. Hospitalists were asked to evaluate the patient for admission. PAST MEDICAL HISTORY: 1. Hypertension. 2. Asthma. 3. Depression. 4. Renal calculi. 5. Anemia. 6. GERD. 7. Migraines. 8. Anxiety. PAST SURGICAL HISTORY: 1. Status post x2. 2. Status post cystoscopies and stent placement and removal. HOME MEDICATIONS: Include: 1. Flexeril 10 mg oral twice daily as needed for muscle spasms. 2. ProAir 2 puffs inhalation every 4 hours as needed for shortness of breath or wheeze. 3. Omeprazole 20 mg oral daily as needed for indigestion. 4. Avenel-3 fish oil 1 capsule oral daily. 5. Singulair 10 mg oral daily at bedtime. 6. Magnesium oxide 400 mg oral daily. 7. Lorazepam 0.5 mg oral every 4 hours as needed for anxiety. 8. Sebree 7.5/325 one tablet oral 4 times daily as needed for pain. 9. Glucosamine chondroitin 1 tablet oral daily. 10. Gabapentin 100 to 300 mg oral daily at bedtime as needed for restless legs. 11. Flovent 110 mcg 1 puff inhalation twice daily as needed for shortness of breath or wheeze. 12. Cristal 180 mg oral daily as needed for allergy symptoms. 13. Prozac 60 mg oral every morning. 14. Pepcid 20 mg oral twice daily as needed for indigestion. 15. Voltaren 75 mg oral twice daily with meals as needed for pain. 16. Vitamin D 2000 units oral daily. 17. Fiorinal 1 capsule oral every 4 hours as needed for migraine headache. 18. Amlodipine 5 mg oral daily at bedtime. ALLERGIES: SULFA causes shortness of breath, HYDROCHLOROTHIAZIDE causes shortness of breath. She does not tolerate CODEINE or DEMEROL. FAMILY HISTORY: The patient's maternal grandparents had a history of heart disease. Her mother and maternal aunts and uncles had a history of diabetes mellitus. The patient's father had a history of lung cancer in the past, age 55. She had a brother with a history of Wilms' tumor. SOCIAL HISTORY: The patient is a former smoker, quitting over 20 years ago. She has an approximately 15-year smoking history prior to that. She rarely drinks alcohol. Denies recreational drug use. Her daughter Rebecca will be her surrogate decision maker in the event she is unable to make decisions for herself. REVIEW OF SYSTEMS: I performed an 11-point review of systems. All the pertinent positives and negatives are mentioned in the history of present illness. The remaining review of systems is negative. PHYSICAL EXAMINATION GENERAL APPEARANCE: The patient is alert, pleasant, appears to be in no acute distress. HEENT: Normocephalic, atraumatic. Pupils are equal and reactive to light. Extraocular movements are intact. RESPIRATORY: There is no accessory muscle use. Lungs are clear to auscultation bilaterally. CARDIOVASCULAR: Regular rate and rhythm. S1, S2 present. There are no murmurs , rubs, or gallops. ABDOMEN: Soft, nontender, nondistended. Bowel sounds present x4. The patient has bilateral CVA tenderness with pain, worse on the right. EXTREMITIES: There is no lower extremity edema. DP and PT pulses are 2+ and symmetric. MUSCULOSKELETAL: There is no clubbing or cyanosis noted. NEUROLOGICAL: The patient is alert and oriented x4. Cranial nerves II through XII are grossly intact. PSYCHOLOGICAL: The patient is calm and cooperative. SKIN: There are no rashes or abnormalities seen. DIAGNOSTIC STUDIES/LAB DATA: Sodium 134, potassium 3.8, chloride 105, CO2 19, BUN 12, creatinine 0.65, glucose 121. White blood cell count 6.7, hemoglobin 11.0, hematocrit 33, platelet count 164. Urinalysis is significant for specific gravity of 1.006, blood 2+, leukocyte esterase 3+, wbc's 2+. Abdomen and pelvis CT from today. Radiologist's impression: Interval appearance of a 5 mm renal calcification in the proximal right ureter, not present on the most recent 12/02/17 CT examination. Additional nonobstructive renal calculi are seen in the bilateral kidneys. Additional chronic and degenerative changes discovered in the body of the report, unlikely to be related to the patient's current clinical presentation. IMPRESSION: Ms. May is a 57-year-old female with past medical history significant for hypertension, asthma, depression, renal calculi, anemia, GERD, migraines, anxiety who presented to the emergency room with complaints of bilateral flank pain. She will be admitted as an observation for renal calculi. ASSESSMENT/PLAN: 1. Renal calculi. The patient has a history of urosepsis with Escherichia coli bacteremia in the past. She does not appear to be septic at this time. She does not have leukocytosis and she is not tachycardic or tachypneic. She is going to receive IV ceftriaxone in the emergency room while she awaits to go to the operating room with Dr. Jerome later today. The patient will be given IV hydration and pain medication. She will be n.p.o. for her procedure. She had blood cultures collected. 2. Hypertension. The patient will be continued on her home amlodipine. 3. History of gastroesophageal reflux disease. The patient will be continued on her as needed omeprazole and famotidine. 4. Depression. The patient will be continued on her home Prozac. 5. Anemia. The patient appears to be at or above her baseline. She has normocytic anemia at baseline. 6. Fluids, electrolytes, and nutrition. The patient will be n.p.o. until surgery. 7. Code status: Full code. 8. DVT prophylaxis: She will have subcu heparin postoperatively and SCDs preoperatively. 9. Disposition: Observation. TIME SPENT: Time for this admission was approximately 60 minutes, greater than half of that was spent with the patient discussing medications, past medical history, and the events leading up to her arrival today, performing a physical examination. The case has been reviewed with the attending, Dr. Mcmanus, who agrees with the plan of care. Reviewed by VICKI VARMA 12/31/172007 [id number]/[facility] #: [id number] [facility]
[2017-12-29] MEDS: oxyCODONE/Acetamin 5/325 MG* TAB PO PRN (07:24)
[2017-12-29 07:57] VITALS: BP 117/52
[2017-12-29] MEDS ORDERED: Magnesium Oxide TAB* 400 MG PO SCH (09:00)
[2017-12-29] MEDS ORDERED: Omeprazole CAP* 20 MG PO SCH (09:00)
[2017-12-29] MEDS ORDERED: FLUoxetine CAP* 20 MG PO SCH (09:00)
[2017-12-29] MEDS ORDERED: cefTRIAXone(*) 1 GM in NS 0.9% 50 ML* 50 ML IVPB SCH (09:00)
[2017-12-29] MEDS ORDERED: Cholecalciferol TAB* 1000 UNITS PO SCH (09:00)
--- NOTE | 2017-12-29 10:36 | RAD ---
INDICATION: Right ureteral stent placement COMPARISON: KUB dated October 28, 2017 TECHNIQUE: 2 views the abdomen were obtained. FINDINGS: There has been interval removal of the left ureteral stent and placement of an anatomically aligned right ureteral stent. There are 2 small foci of calcium each measuring approximately 2 mm overlying the lower pole collecting system of the right kidney IMPRESSION: INTERVAL PLACEMENT OF AN ANATOMICALLY ALIGNED RIGHT URETERAL STENT AND REMOVAL OF THE PREVIOUSLY SEEN LEFT URETERAL STENT.
--- NOTE | 2017-12-29 12:59 | OP ---
DATE OF OPERATION: 12/28/17 - ROOM #332 DATE OF : 64 SURGEON: Chalo Jerome MD ANESTHESIOLOGIST: Dr. Boyer. ANESTHESIA: General. PRE-OP DIAGNOSES: 1. Proximal right ureteral calculus. 2. Urinary tract infection. POST-OP DIAGNOSES: 1. Proximal right ureteral calculus. 2. Urinary tract infection. OPERATIVE PROCEDURE: 1. Cystoscopy. 2. Right retrograde pyelography and placement of right ureteral stent (6-Sudanese ). INDICATION FOR PROCEDURE: Ms. May is a 57-year-old white female who is a known stone former and who about 2 months ago required emergency placement of a left ureteral stent for urosepsis and obstructing left ureteral calculus . She then underwent Lt ureteroscopy and calculus extraction. Shew was known to have residual bilateral renal calculi. She presented to the office earlier today with history of 101 fever, bilateral flank pain more so on the right side. Her urine analysis was positive for infection. The patient was sent to the emergency room where she had an noncontrast CT of the abdomen and pelvis, which showed a 6 mm calculus in the proximal right ureter associated with moderate right hydronephrosis. Bilateral nonobstructing renal calculi were noted. The patient was started on IV Rocephin and is now taken to the operating room on an urgent basis for placement of right ureteral stent. PATHOLOGY AT CYSTOSCOPY: The bladder mucosa showed slight hyperemia, but did not show ken cystitis changes. At fluoroscopy, the calculus in the proximal right ureter could not be visualized. Upon right retrograde pyelography, there was [id number] right hydronephrosis. Hydronephrotic drip was noted from the right kidney. The urine was slightly cloudy. DESCRIPTION OF PROCEDURE: After successful general anesthesia, the patient was placed in the lithotomy position and was prepped and draped for cystoscopy. Cystoscopy was performed, the bladder was carefully inspected and the above findings were noted. A flexible tip guidewire was then introduced into the right orifice and positioned in the area of the renal pelvis. An open-ended catheter was fed on top of the guidewire and positioned in the area of the renal pelvis. After allowing the hydronephrotic drip to slow down, 2 to 3 cc of contrast were injected delineating the collecting system and the proximal ureter. A size 6-Sudanese stent was then placed with the proximal end coiling in the upper pole infundibulum and the lower end coiling inside the bladder. There was good drainage of contrast from the kidney. The patient tolerated the procedure well and left the operating room in good condition. The plan is to observe the patient overnight to make sure she does not become septic. KUB will be obtained in the morning in preparation for definitive treatment of the right ureteral calculus. [id number]/[facility] #: [id number] [place]
[2017-12-31] MEDS ORDERED: Scopolamine PATCH Remove* 1 NOTE MISC PATCH OFF ONE (13:57)
--- NOTE | 2018-01-08 22:37 | DS ---
DISCHARGE SUMMARY: DATE OF ADMISSION: 12/28/17 DATE OF DISCHARGE: 12/29/17 OPERATIONS: 1. Cystoscopy. 2. Right retrograde pyelography and placement of right ureteral stent on . FINAL DIAGNOSES: 1. Right ureteral calculus & urinary tract infection.. 2. Bilateral renal calculi. 3. Urinary tract infection. 4. Hypertension. 5. Asthma. 6. Depression. 7. Migraines. 8. Anxiety. HISTORY: Mrs. May is a 57-year-old white female who is a known stone former and who was admitted 2 months ago with urosepsis, positive blood cultures and an obstructing distal left ureteral calculus. Her CT also showed bilateral non obstructing renal calculi. She had urgent placement of left ureteral stent and treated with IV antibiotics with resolution of her sepsis. After she recovered, she was taken to the operating room and underwent left ureteroscopy, laser lithotripsy and left ureteral stent placement. She did well afterwards. On 12/28/17 she presented to my office with right flank pain and fever of 102 over the previous 2 days. She had some urgency and frequency. She was sent to the emergency room where she had a work-up. Noncontrast CT of the abdomen and pelvis showed bilateral nonobstructing renal calculi and a 6- mm calculus at the right ureteropelvic junction. After blood cultures and starting her on IV Rocephin, she was then taken to the operating room that same day and had a cystoscopy and placement of right ureteral stent. The patient was observed overnight, remained afebrile and pain free, and was discharged home on p.o. Keflex. ALLERGIES: The patient has allergies to SULFA, which gives her shortness of breath and to HCTZ, which also causes shortness of breath. She has intolerance to CODEINE and DEMEROL. DISCHARGE MEDICATIONS: 1. Keflex 500 mg 3 times per day for 10 days. 2. Flexeril 10 mg twice a day for muscle spasms. 3. ProAir 2 puffs inhalation every 4 hours as needed for shortness of breath or wheezing. 4. Omeprazole 20 mg p.o. daily for indigestion. 5. Singulair 10 mg daily at bedtime. 6. Magnesium oxide 400 mg p.o. daily. 7. Lorazepam 0.5 mg p.o. every 4 hours as needed for anxiety. 8. Gabapentin 100 to 300 mg p.o. daily at bedtime as needed for restless legs. 9. Flovent 110 mcg 1 puff inhalation twice a day for shortness of breath or wheezing. 10. Cristal as needed for allergies. 11. Prozac 60 mg every day. 12. Pepcid 20 mg twice a day as needed for indigestion. 13. Voltaren 75 mg twice a day as needed for pain. 14. Vitamin D 2000 units daily. 15. Fiorinal 1 capsule p.o. every 4 hours as needed for migraine headache. 16. Amlodipine 5 mg daily for bedtime. PLAN: The plan is to see the patient back in the office for a KUB. Decision will be made regarding the definitive treatment of the right renal and ureteral calculi. [id number]/[facility] #: [id number] MTDD
== END 2017-12-29 10:10 | disposition home or self-care (01) ==
LOC: ED 11:54 → SSU 18:35
PROVIDERS: ADMIT Nurse Practitioner Family; ATTEND Urology
PROC: 0T768DZ Dilation of Right Ureter with Intraluminal Device, Via Natural or Artificial Opening Endoscopic (ICD-10-PCS; 2017-12-28)
PROC: 0TC68ZZ Extirpation of Matter from Right Ureter, Via Natural or Artificial Opening Endoscopic (ICD-10-PCS; principal; 2017-12-28 16:15)
DX: N20.2 Calculus of kidney with calculus of ureter (principal); N39.0 Urinary tract infection, site not specified; R10.84 Generalized abdominal pain; Z87.891 Personal history of nicotine dependence; I10 Essential (primary) hypertension; J45.909 Unspecified asthma, uncomplicated; F32.9 Major depressive disorder, single episode, unspecified; D64.9 Anemia, unspecified; K21.9 Gastro-esophageal reflux disease without esophagitis; Z87.442 Personal history of urinary calculi
CPT/HCPCS: 36415; 74018; 74176; 74420; 80053; 81003; 81015; 83605; 85025; 85610; 86140; 87040; 87077; 87086; 87186; 99283; A9270-GY; C1876; G0378; J0696; J1100; J1240; J1644; J1885; J2250; J2270; J2704; J3010

== ENCOUNTER 2018-01-09 06:52 | Day surgery (SDC) | payer MEDICARE ==
--- NOTE | 2018-01-03 20:09 | HP ---
CC: Dr. Jamison HISTORY AND PHYSICAL: DATE OF PLANNED ADMISSION AND SURGERY: 01/09/18 HISTORY OF PRESENT ILLNESS: Ms. May is a 57-year-old white female who is admitted with right renal calculi, status post placement right ureteral stent for shockwave lithotripsy of right renal calculi and possible cystoscopy and removal of right ureteral stent. Ms. May is a known stone former and had required an urgent placement of a left ureteral stent for an obstructing left ureteral calculus associated with urosepsis and positive blood cultures. She did well following the stent placement and antibiotics, and 2 weeks later, she underwent a left ureteroscopy and laser lithotripsy of the left ureteral calculus. She presented back to the emergency room on 12/28/17 with an obstructing right ureteral calculus associated with fever and positive urine for urinary tract infection. She was taken to the operating room that same day and had urgent placement of right ureteral stent. She was treated with cephalosporins with resolution of the uti. Postoperative KUB showed 2 calculi in the lower pole calyx of the right kidney each measuring about 5 mm in size and there was a faint calculus at the level of the right ureteropelvic junction. Urine culture grew pansensitive E. coli and the patient has been maintained on Keflex since her procedure on 12/28/17. She is now admitted for the above procedure. The patient had a metabolic stone work-up. Stone analysis showed it to be calcium phosphate. 24-hour urine studies showed low urine citrate, a urine pH which is never lower than 6, and with those findings consistent with Type 1 distal renal tubular acidosis, explaining her recurrent stone disease, she is recently started on potassium citrate 15 mEq twice per day. PAST MEDICAL HISTORY AND SYSTEM REVIEW: 1. Hypertension. 2. Asthma. 3. History of depression. 4. Anemia. 5. GERD. 6. Migraines. 7. Anxiety. MEDICATIONS: She is maintained on: 1. Keflex 500 mg 3 times per day. 2. Potassium citrate 15 mEq twice a day. 3. She is on ProAir, Singulair 10 mg daily, Flovent inhaler twice a day for her asthma. 4. She takes omeprazole 20 mg daily as needed for GERD. 5. She takes lorazepam 0.5 mg every 6 hours as needed for anxiety. 6. She is on Prozac 60 mg daily for depression. 7. She takes amlodipine 5 mg daily for her high blood pressure. ALLERGIES: She reports being allergic to SULFA which gives her shortness of breath and HCTZ which also gives her shortness of breath. She has intolerance to codeine and to Demerol. FAMILY HISTORY: Negative for renal calculus disease. SOCIAL HISTORY: The patient is a former smoker. She does not drink alcohol. PHYSICAL EXAMINATION GENERAL: Pleasant white female, who looks a little bit pale, but otherwise fine. VITAL SIGNS: Blood pressure 120/70, pulse of 76, temperature 96. LUNGS: Clear. HEART: Regular and rhythmic, no murmurs. ABDOMEN: Soft, no masses, no tenderness and no CVA tenderness. EXTREMITIES: Show no edema. IMPRESSION: 1. Right renal calculi, status post placement of right ureteral stent. 2. Non-obstructing asymptomatic left renal calculi. 3. Renal tubular acidosis with calcium phosphate renal calculi on treatment with potassium citrate. 4. Hypertension. 5. Chronic anxiety and depression. 6. Asthma. 7. Depression. PLAN: Shockwave lithotripsy of the right renal calculi and if there is good fragmentation of the stone, for cystoscopy and removal of the right ureteral stent. Her calculi are rather faint and were somewhat difficult to visualize on the KUB , especially the stone at the ureteropelvic junction. Hopefully, the calculi can be well seen at fluoroscopy to perform the full shockwave lithotripsy needed. I discussed the above plans with the patient. Some of the potential complications including infection, hematuria, postoperative renal colic were discussed. All her questions were answered. [id number]/[facility] #: [id number] TRINA
[~2018-01-09 06:52] MED LIST changes: -DiMENhydriNATE IV* 50 MG/ML VIAL IV PUSH PRN; -Famotidine IV* 10 MG/ML 2 ML (20 mg) IV ONE; -Morphine INJ* 2 MG/ML 1 ML CARPUJECT IV PRN; -Naloxone* 0.4 MG/ML 1 ML VIAL IV PRN; -PROCHLORPERAZINE INJ 5 MG/ML 2 ML VIAL IV PRN; -Scopolamine 1.5 mg* PATCH TRANSDERM ONE; -fentaNYL* 50 MCG/ML 2 ML VIAL (100 MCG VIAL) IV PRN; -oxyCODONE/Acetamin 5/325 MG* TAB PO PRN
[2018-01-09] MEDS ORDERED: Buffered Lidocaine 0.9% SYRIN* 5 ML/SYR SYRINGE ONE (07:26)
[2018-01-09] MEDS ORDERED: cefTRIAXone(*) 2 GM ADDV.VIAL IVPB ONE (07:26)
--- NOTE | 2018-01-09 08:12 | RAD ---
HISTORY: Shock wave lithotripsy COMPARISONS: January 02, 2018 VIEWS: Frontal views of the abdomen. FINDINGS: BOWEL: There is a nonobstructive bowel gas pattern. There is enlargement stool throughout the colon. CALCULI: A right ureteral stent is noted. There are small calculi overlying the renal parenchymal shadow is bilaterally, stable. BONES AND SOFT TISSUES: Degenerative changes are noted OTHER FINDINGS: The lung bases are clear. There is no subphrenic gas. IMPRESSION: STABLE BILATERAL NEPHROLITHIASIS WITH A RIGHT URETERAL STENT
[2018-01-09] MEDS ORDERED: fentaNYL* 50 MCG/ML 2 ML VIAL (100 MCG VIAL) ONE (08:37)
[2018-01-09] MEDS ORDERED: Propofol* 10 MG/ML 20 ML BTL IV PUSH ONE (08:37)
[2018-01-09] MEDS ORDERED: Midazolam* 1 MG/ML 2 ML VIAL (2 MG) ONE (08:37)
[2018-01-09] MEDS ORDERED: Lidocaine 2% PF * 5 ML VIAL ONE (08:37)
[2018-01-09] MEDS ORDERED: Naloxone* 0.4 MG/ML 1 ML VIAL IV PRN (09:17)
[2018-01-09] MEDS ORDERED: DiMENhydriNATE IV* 50 MG/ML VIAL ONE (11:11)
[2018-01-09 11:17] VITALS: BP 102/70
--- NOTE | 2018-01-10 04:59 | OP ---
CC: Juan Luis Jamison MD * DATE OF OPERATION: 01/09/18 - [facility] DATE OF : 64 SURGEON: Chalo Jerome MD ANESTHESIOLOGIST: Porter Loza DO ANESTHESIA: General. PRE-OP DIAGNOSES: 1. Proximal right ureteral calculus (6 mm). 2. Right renal calculi (2 x 5 mm), lower pole. 3. Status post placement of right ureteral stent. POST-OP DIAGNOSES: 1. Proximal right ureteral calculus (6 mm). 2. Right renal calculi (2 x 5 mm), lower pole. 3. Status post placement of right ureteral stent. OPERATIVE PROCEDURE: Shockwave lithotripsy of right ureteral calculus and of two right renal calculi. INDICATION FOR PROCEDURE: Mrs. May is a 57-year-old white female who is a known stone former and who had required urgent stent placements and ureteroscopies for obstructing ureteral calculi associated with sepsis. She had urgent placement of a right ureteral stent about 10 days ago for a 6 mm calculus in the proximal right ureter. CT then showed also two calculi in the lower pole calyx of the right kidney. After treatment with antibiotics and resolution of the infection, the patient is admitted for the above procedure. PATHOLOGY: Preoperative KUB showed the right ureteral stent in good position. A faint calculus measuring about 6 mm in size was noted in the proximal right ureter adjacent to the stent at the level of L2-L3. Two small radiopaque calculi were also noted in the lower pole calyx. DESCRIPTION OF PROCEDURE: After successful general anesthesia, the patient was placed in the supine position on the shockwave lithotripsy table. The right ureteral calculus was visualized in both the PA and the oblique x-ray views and the position of the patient and the generator were adjusted to have the stone in the focus of the shockwaves. A total of 800 shocks were then delivered at a rate of 90 shocks per minute. Because of associated PVCs, the shockwaves were coupled with her heart rate and the PVCs resolved. There was good fragmentation of the ureteral calculus. Attention was then directed to the lower pole renal calculi. The patient was repositioned to have the lower pole renal calculi in the focus of the shockwaves. Additional 800 shocks were then delivered. A 2-minute break was taken after the initial 200 shocks. At the completion of the treatment, there was very good fragmentation of the calculi, which could not be anymore seen on fluoroscopy. The patient tolerated the procedure well and left the operating room in good condition. The plan is to bring the patient back in about 7 to 10 days with a KUB and for removal of the right ureteral stent in the office. [id number]/[facility] #: [id number] MTDD
== END 2018-01-09 11:43 | disposition home or self-care (01) ==
LOC: OR 06:52
PROVIDERS: ATTEND Urology
DX: N20.0 Calculus of kidney (principal); N20.1 Calculus of ureter; N39.0 Urinary tract infection, site not specified; Z87.442 Personal history of urinary calculi; I10 Essential (primary) hypertension; J45.909 Unspecified asthma, uncomplicated; F41.8 Other specified anxiety disorders; M79.7 Fibromyalgia
CPT/HCPCS: 74018; J0696; J1240; J2250; J2704; J3010

== ENCOUNTER 2018-02-03 20:56 | Emergency (ER) | payer MEDICARE ==
[2018-02-03] MEDS ORDERED: Ondansetron INJ* 2 MG/ML VIAL IV ONE (22:01)
[2018-02-03] MEDS ORDERED: Ondansetron ODT TAB* 4 MG ONE (22:11)
[2018-02-03] MEDS ORDERED: Ondansetron ODT TAB* 4 MG PO ONE (22:13)
[2018-02-03 22:36] LABS: Urine Appearance Clear; Urine Blood 2+ (Negative); Urine Color Colorless; Urine Ketones Negative (Negative); Urine Protein Negative (Negative); Urine Red Blood Cell Absent (Absent); Urine Specific Gravity 1.002 (1.010-1.030); Urine Urobilinogen Negative (Negative); Urine White Blood Cell Absent (Absent)
[2018-02-03 22:38] LABS: ABS Basophils 0 10^3/ul (0-0.2); ABS Eosinophils 0.5 10^3/ul (0-0.6); ABS Monocytes 0.3 10^3/ul (0-0.8); ABS Neutrophils 2.2 10^3/ul (1.5-7.7); ABS Nucleated RBC 0 10^3/ul; Eosinophil % 9.6 % (0-6); Hematocrit 32 % (35-47); Hemoglobin 10.6 g/dl (12.0-16.0); Lymphocyte % 40.3 % (25-47); Mean Corpuscular HGB Conc 33 g/dl (31-36); Mean Corpuscular Hemoglobin 27 pg (27-31); Mean Corpuscular Volume 82 fL (80-97); Nucleated Red Blood Cells % 0.1; Platelet Count 229 10^3/ul (150-450); Red Blood Count 3.95 10^6/ul (4.00-5.40); Red Cell Distribution Width 15 % (10.5-15)
[2018-02-03 22:45] LABS: EGFR Non-African American 80.2 (>60)
[2018-02-04 02:28] VITALS: BP 123/73
--- NOTE | 2018-02-04 07:21 | RAD ---
CLINICAL HISTORY: assess for nephrostomy tube placement COMPARISON: January 26, 2018 TECHNIQUE: Multiple contiguous axial CT scans were obtained of the abdomen and pelvis, without intravenous contrast enhancement. Coronal and sagittal multiplanar reformations are submitted for review. Oral contrast was not administered. FINDINGS: The study is limited by the lack of intravenous contrast. This limits evaluation of the solid organs and vasculature. LUNG BASES: The lung bases are clear. LIVER: The liver is normal in shape, size, contour, and attenuation. BILE DUCTS: There is no intrahepatic or extrahepatic biliary dilatation. GALLBLADDER: The gallbladder is normal, without pericholecystic inflammatory change. PANCREAS: The pancreas is normal, without mass or ductal dilatation. SPLEEN: Normal in size and appearance. UPPER GI TRACT: Evaluation of the gastrointestinal tract is limited by incomplete gastric distention. The upper GI tract is unremarkable. SMALL BOWEL AND MESENTERY: The small bowel is normal in contour, course, and caliber. There is no obstruction or dilatation. COLON: The colon is normal in contour, course, caliber. There is no pericolonic inflammatory change. ADRENALS: Normal bilaterally. KIDNEYS: There is a right percutaneous nephrostomy with a right ureteral stent. Both appear in anatomic position. There is a small amount of gas within the right renal pelvis consistent with the history of instrumentation. There are multiple bilateral renal calyceal stones. BLADDER: The bladder is incompletely distended but is grossly normal. PELVIC ORGANS: The uterus and adnexa are grossly normal for technique. AORTA: The aorta is normal. IVC: Unremarkable LYMPH NODES: There is no lymphadenopathy by size criteria. ABDOMINAL WALL: There is no evidence for abdominal wall hernia. BONES AND SOFT TISSUES: Degenerative changes are noted with grade 1 anterolisthesis of L4 on L5, with associated severe narrowing of the central canal at this level.. OTHER: None IMPRESSION: 1. STATUS POST RIGHT PERCUTANEOUS NEPHROSTOMY AND URETERAL STENT. THE DEVICES APPEAR TO BE IN ANATOMIC POSITION. THERE IS A SMALL AMOUNT OF GAS WITHIN THE RIGHT RENAL PELVIS CONSISTENT WITH THE HISTORY OF RECENT INSTRUMENTATION. 2. BILATERAL NEPHROLITHIASIS
--- NOTE | 2018-02-21 10:46 | ED ---
Steven Boykin Natalie, scribed for Corey Matos MD on 02/03/18 at 2223 . GI/ HPI - HPI Summary HPI Summary: The patient is a 57 y/o F presenting to the ED c/o right nephrostomy tubing leaking starting two hours ago. The tube was placed on 01/27/18 because she had a stent stuck that needed to removed. She was seen by Dr. Jerome earlier today for a checkup. After her appointment, the pt noticed there was redness, pressure , and soreness that was not present prior to her visit. The pain is rated 5/10 in severity. During this time, she also noticed that the leaking started from the entrance point of the tube. She states that it felt like her kidney was irritated. She also reports that throughout the week, she felt like she had to urinate frequently, but her output was low as if she had an oncoming infection. She denies fever and chills, but had nausea on her way to the ED. She has hx of kidney stones, approximately five times. - History of Current Complaint Chief Complaint: EDGeneral Time Seen by Provider: 02/03/18 21:16 Stated Complaint: ABNORMAL DISCHARGE Hx Obtained From: Patient Onset/Duration: Started Hours Ago, Still Present Timing: Constant, Lasting Hours Severity: Moderate Current Severity: Moderate Pain Intensity: 5 Location of Pain: Other - right kidney where nephrostomy tube is placed Associated Signs and Symptoms: Positive: Nausea, Other: - redness surrounding entrance of nephrostomy tubing. Negative: Fever, Chills - Additional Pertinent History Primary Care Physician: [id number] - Allergy/Home Medications Allergies/Adverse Reactions: Allergies Allergy/AdvReac Type Severity Reaction Status Date / Time hydrochlorothiazide Allergy Severe Shortness Verified 02/03/18 21:01 of Breath Sulfa (Sulfonamide Allergy Severe Shortness Verified 02/03/18 21:01 Antibiotics) of Breath codeine Allergy Unknown Unknown Verified 02/03/18 21:01 Reaction Details meperidine [From Demerol] Allergy Unknown Unknown Verified 02/03/18 21:01 Reaction Details Home Medications: Home Medications Docusate CAP* [Colace Cap*] 100 mg PO DAILY 02/03/18 [History Confirmed 02/04/18 ] PMH/Surg Hx/FS Hx/Imm Hx Endocrine/Hematology History: Reports: Hx Anemia Denies: Hx Diabetes Cardiovascular History: Reports: Hx Hypertension Respiratory History: Reports: Hx Asthma, Hx Pulmonary Edema - IN HOSPITAL LAST WEEK, Hx Seasonal Allergies GI History: Reports: Hx Gastroesophageal Reflux Disease History: Reports: Hx Kidney Infection, Hx Kidney Stones Comment Only: Other Problems/Disorders - s/p left ureter stent Musculoskeletal History: Reports: Hx Arthritis - KNEES AND HIPS, Hx Fibromyalgia , Other Musculoskeletal History - degenerative discs Sensory History: Reports: Hx Contacts or Glasses Denies: Hx Glaucoma, Hx Hearing Aid Opthamlomology History: Reports: Hx Contacts or Glasses Denies: Hx Glaucoma Neurological History: Reports: Hx Migraine Denies: Hx Dementia, Hx Developmental Delay, Hx Nerve Disease, Hx Seizures, Hx Spinal Cord Injury, Hx Transient Ischemic Attacks (TIA) Psychiatric History: Reports: Hx Anxiety, Hx Depression - Cancer History Hx Chemotherapy: No - Surgical History Surgery Procedure, Year, and Place: stent placement, kidney stone removal, c- section x2 Hx Anesthesia Reactions: No Infectious Disease History: No Infectious Disease History: Denies: Traveled Outside the [place] in Last 30 Days - Family History Known Family History: Positive: Renal Disease - KIDNEY STONES - Social History Alcohol Use: Rare Substance Use Type: Reports: None Smoking Status (MU): Former Smoker Amount Used/How Often: smoked for approx 15 years 1ppd Have You Smoked in the Last Year: No Review of Systems Negative: Fever, Chills Positive: Nausea Genitourinary: Other - leaking nephrostomy tubing Positive: Other - redness and soreness around nephrostomy tubing entrance in right kidney All Other Systems Reviewed And Are Negative: Yes Physical Exam - Summary Physical Exam Summary: Appearance: Well-appearing, no distress, Well-nourished Skin: Warm, color reflects adequate perfusion Head: Normal Head/Face inspection Eyes: Conjunctiva clear ENT: Normal inspection Neck: Supple, no nodes, no JVD. Respiratory: Lungs clear, Normal breath sounds, no respiratory distress Cardio: RRR, No murmur, pulses normal, brisk capillary refill Abdomen: soft, nontender, no guarding, no rebound Bowel sounds: present Musculoskeletal: Strength Intact/ ROM intact. No calf tenderness. No edema. Neuro: Alert, muscle tone normal, facial symmetry, speech normal, sensory/motor intact Psychological: Normal Triage Information Reviewed: Yes Vital Signs On Initial Exam: Initial Vitals Temp Pulse Resp BP Pulse Ox 97.3 F 88 20 159/98 98 02/03/18 20:58 02/03/18 20:58 02/03/18 20:58 02/03/18 20:58 02/03/18 20:58 Vital Signs Reviewed: Yes Diagnostics - Vital Signs Vital Signs Temp Pulse Resp BP Pulse Ox 02/03/18 20:58 97.3 F 88 20 159/98 98 - Laboratory Result Diagrams: 02/03/18 22:17 02/03/18 22:17 Lab Statement: Any lab studies that have been ordered have been reviewed, and results considered in the medical decision making process. - CT Abd/Pel CT CT Interpretation: Positive (See Comments) - Right external nephrostomy tube and a right ureteral stent with a small amount of nonspecific gas in the right kidney renal pelvis most likely due to introduced air associated with recent nephrostomy procedure and infection from gas-forming microorganisms is less likely with mild dilation of the right kidney renal pelvis most likely consistent with mild right hydronephrosis with no significant obstruction of the right external nephrostomy tube or right internal nephrostomy tube. If there is a clinical concern for pyelonephritis or partial low-grade obstruction then follow-up or further evaluation may be needed. Bilateral nonobstructing nephrolithiasis. Mild nonspecific bladder wall thickening may be due to infectious cystitis. Constipation with diverticulosis without diverticulitis. Severe spinal canal stenosis at L4-5 most likely associated with cauda equina syndrome and compression of the traversing cauda equina and severe neural foraminal narrowing at the lower lumbar levels bilaterally at L4-5 and L5-S1. If clinically indicated follow-up outpatient MRI lumbar spine may be needed. This CT exam was performed using one or more of the following dose reduction techniques: automated exposure control, adjustment of the mA and/or kV according to patient size, use of iterative reconstruction technique. ED physician has reviewed this report. CT Interpretation Completed By: Radiologist RUBA Course/Dx - Diagnoses Provider Diagnoses: Malfunction of nephrostomy tube Discharge - Sign-Out/Discharge Documenting (check all that apply): Discharge/Admit/Transfer - The pt will be discharged home under stable conditions. - Discharge Plan Condition: Stable Disposition: HOME Patient Education Materials: Nephrostomy Tube Care (ED) Referrals: Juan Luis Jamison MD [Primary Care Provider] - [facility] [Provider Group] - 1 Day Additional Instructions: Please follow up in the emergency room at [facility] tomorrow morning for an interventional radiology evaluation. Return to the emergency department for any new or worsening symptoms. - Billing Disposition and Condition Condition: STABLE Disposition: Home The documentation as recorded by the Steven melchor Natalie accurately reflects the service I personally performed and the decisions made by me, Corey Matos MD.
== END 2018-02-04 02:28 | disposition home or self-care (01) ==
LOC: ED 20:56
DX: T83.032A Leakage of nephrostomy catheter, initial encounter (principal); R11.0 Nausea; Z87.891 Personal history of nicotine dependence; X58.XXXA Exposure to other specified factors, initial encounter; Y92.9 Unspecified place or not applicable
CPT/HCPCS: 36415; 74176; 80053; 81003; 81015; 85025; 87086; 96374; 99282; A9270-GY